=== PATIENT | male | born 1955 | race Caucasian/White ===

== ENCOUNTER 2022-05-24 03:05 | Emergency (ER) | payer MEDICARE, SELFPAY ==
[2022-05-24 03:20] VITALS: BP 146/94; PULSE 90; RESP 16; TEMP 37.9; O2SAT 93
--- NOTE | 2022-05-24 03:41 | CRLHL7_ITS ---
For Patients: As a result of the Cures Act, medical imaging exams and procedure reports are released immediately into your electronic medical record. You may view this report before your referring provider. If you have questions, please contact your health care provider. INDICATION: Cough. TECHNIQUE: Chest 2 views. COMPARISON: None. FINDINGS: Cardiovascular and mediastinum: Heart size and vasculature are normal in caliber and appearance. Lungs and pleural spaces: Lungs are clear. No sign of infiltrate or mass. No sign of pleural effusion. No pneumothorax. Bones and soft tissues: No significant findings. IMPRESSION: No acute or significant findings. No sign of pneumonia or CHF. Dictated by Mayo Alas MD @ 05/24/2022 4:28:43 AM (Electronically Signed)
--- NOTE | 2022-05-24 03:43 | ED_ITS ---
HPI - General Adult General Chief complaint: Cough Stated complaint: bronchitis Time Seen by Provider: 05/24/22 03:16 Source: patient and family Mode of arrival: ambulatory Limitations: no limitations History of Present Illness HPI narrative: Male with a notable prior history of stroke presents to the emergency department with a history of cough for the past 12-14 days. Patient states that the cough had started to improve for a couple of days and then worsened today. There is no severe shortness of breath, no hemoptysis, no lightheadedness or dizziness. He had a low-grade fever at home that started this evening. He has not tried taking any Tylenol or ibuprofen. He has been using Robitussin and NyQuil with limited temporary improvement in his symptoms. Has not sought medical care in the last 2 weeks regarding this. Denies a prior history of COPD. Does have a notable history of pulmonary hypertension, denies any sleep apnea. He is anticoagulated on Coumadin and is on metoprolol which would be suggestive of an AFib history, especially since he has had a previous stroke but he denies any knowledge of this though he does get follow-up echo. This certainly could be secondary to advanced heart failure but I have limited records as he receives his care in the [facility]. He denies a history of heart attack or other heart issues. There were no specific factors that made him suddenly come to the emergency department in the middle of the night for this cough. Denies a prior history of DVT or PE. COVID swab negative at home per patient. Denies chest pain, palpitations, dyspnea on exertion or other cardiac symptoms. Past medical history notable for prior stroke, pulmonary hypertension. Home meds are metoprolol, rosuvastatin, Coumadin, lisinopril, allopurinol. Socially is a lifetime nonsmoker, no pertinent travel. Family history is negative for any known sick contacts. Was notable for the respiratory symptoms as above, otherwise denies times 12 systems. Related Data Home Medications Medication Instructions Recorded Confirmed allopurinol 300 mg tablet mg 05/24/22 furosemide 40 mg tablet mg 05/24/22 lisinopril 20 mg tablet mg 05/24/22 metoprolol succinate 50 mg mg PO 05/24/22 tablet,extended release 24 hr rosuvastatin 20 mg tablet mg 05/24/22 warfarin 5 mg tablet mg 05/24/22 Previous Rx's Medication Instructions Recorded azithromycin 250 mg tablet See Rx Instructions PO .COMPLEX #6 05/24/22 tabs cefdinir 300 mg capsule 300 mg PO BID #14 caps 05/24/22 potassium chloride 20 mEq 20 meq PO .UD #30 tabs 05/24/22 tablet,extended release Allergies Allergy/AdvReac Type Severity Reaction Status Date / Time No Known Drug Allergies Allergy Verified 05/24/22 03:26 PFSH PFSH Medical History (Updated 05/24/22 @ 05:14 by Jenni Louis MD) CVA (cerebral vascular accident) Gout HTN (hypertension) Hyperlipidemia Lymphocytosis Myopia of both eyes with astigmatism and presbyopia PFO (patent foramen ovale) Pulmonary hypertension PVD (peripheral vascular disease) Rosacea Vitamin D deficiency Surgical History (Updated 05/24/22 @ 04:18 by Danish Bush RN) History of appendectomy History of colonoscopy History of splenectomy History of tympanoplasty History of vasectomy Social History Smoking Status: Never smoker Do you use any of these nicotine containing products: None Second hand tobacco smoke exposure: No How often do you have a drink containing alcohol: never How often do you have six or more drinks on one occasion: Never AUDIT-C Alcohol total score: 0 Non-prescribed substance use: denies use Exam Const: Vital Signs, click to edit/add: Vital Signs - 24 hr 05/24/22 03:20 05/24/22 04:06 05/24/22 05:05 Temperature 100.2 F H 99.5 F Pulse Rate [Left P ulse Oximeter] 90 85 Respiratory Rate 16 16 Blood Pressure [Le ft Upper Arm] 146/94 H 136/81 Pulse Oximetry 93 93 93 Oxygen Delivery Me thod Room Air Room Air Documenting provider has reviewed patient's vital signs: yes Common normals: alert General appearance: cooperative and comfortable Other: Moderate historian. Asks his for clarification reassurance frequently. HENMT: Common normals: normocephalic and head/scalp atraumatic Head and scalp: normocephalic and atraumatic Mouth: oral and palatal mucosa normal Throat: posterior oropharynx normal Eye: Common normals: EOMs intact bilaterally and conjunctivae normal Conjunctiva: conjunctiva(e) normal Neck & C-Spine: Common normals: no lymphadenopathy Chest: Other: . Resp: Common normals: normal respiratory effort Effort & inspection: able to speak in complete sentences Other: Coarse rhonchi in left upper and lower lung anderson, right side is clear. Breath sounds are well heard. Normal respiratory effort. Some upper airway transmitted sounds that do clear with cough Cardio: Common normals: regular rate, regular rhythm and peripheral pulses 2+ throughout Rate: regular rate Rhythm: regular rhythm Peripheral pulses: pulses 2+ throughout Other: Mid systolic murmur, 2/6 GI: Other: Obese but soft with normoactive bowel sounds. Nondistended no masses Extremity: Other: Chronic appearing 2+ edema with staining consistent with chronic venous stasis. Baseline per spouse Neuro: Sensorium/orientation: alert Speech: speech normal Motor exam: strength 5/5 throughout, no tremor noted and no movement abnormalities noted Psych: Appearance: grossly normal Attitude: engaged Insight: fair Judgement: fair Skin: Common normals: no rashes or lesions noted General skin exam: no rashes or lesions noted Course Vital Signs Vital signs: Initial Vital Signs Temperature 100.2 F H 05/24/22 03:20 Temperature Source Temporal Artery Scan 05/24/22 03:20 Pulse Rate 90 05/24/22 03:20 Respiratory Rate 16 05/24/22 03:20 Blood Pressure 146/94 H 05/24/22 03:20 Blood Pressure Mean 111 05/24/22 03:20 Blood Pressure Position Sitting 05/24/22 03:20 Pulse Oximetry 93 05/24/22 03:20 Oxygen Delivery Method 05/24/22 03:20 Vital Signs Temperature 100.2 F H 05/24/22 03:20 Pulse Rate 90 05/24/22 03:20 Respiratory Rate 16 05/24/22 03:20 Blood Pressure 146/94 H 05/24/22 03:20 Pulse Oximetry 93 05/24/22 03:20 Oxygen Delivery Method 05/24/22 03:20 Temperature 99.5 F 05/24/22 05:05 Pulse Rate 85 05/24/22 05:05 Respiratory Rate 16 05/24/22 05:05 Blood Pressure 136/81 05/24/22 05:05 Pulse Oximetry 93 05/24/22 05:05 Oxygen Delivery Method 05/24/22 05:05 Medical Decision Making MDM Narrative Medical decision making narrative: Differential diagnosis including upper respiratory infection, bronchitis, pneumonia, COVID, influenza, cardiac disease, heart failure. Recommend DuoNeb, chest x-ray, basic labs and COVID swab. Re-evaluate once labs are back. No signs of hypoxia, tachycardia or other significant abnormality. Low-grade fever noted. No hypotension to suggest sepsis. Update: Fever resolved, still no tachycardia or hypotension. Labs do show significant leukocytosis. Chest x-ray reassuring. Confirmed with radiology report. Do suspect that there is a pneumonia or a bronchopneumonia. Borderline troponin likely secondary to underlying pulmonary hypertension as he is a good not experiencing any chest pain we have not detected any cardiac abnormalities. Do not recommend further workup on cardiac issues since chest x-ray and BNP are normal. Did log into align a and review cardiac history, prior troponins but none are available. Reviewed most recent echo and subspecialty note. Because of the leukocytosis in symptoms with his underlying pulmonary history, do recommend antibiotic therapy. Starting cephalosporins/macro like combination here in ED, will continue upon discharge. Mild hypokalemia, likely secondary to ongoing furosemide use. Will replace orally here in ED and discharge patient on supply of potassium with outpatient recheck. All questions were answered, he verbalized understanding and agreement Lab Data Lab results reviewed: Yes I reviewed the patient's lab results Labs: Lab Results 05/24/22 05/24/22 05/24/22 Range/Units 03:00 04:05 04:05 WBC 19.79 H (4.50-11.00) K/uL RBC 5.27 (4.30-5.90) m/uL Hgb 16.9 (13.5-17.5) gm/dL Hct 50.1 (37.0-53.0) % MCV 95 (80-100) fL MCH 32 (26-34) pg MCHC 34 (32-36) gm/dL RDW Coeff of Inna 15.1 (11.5-15.5) % Plt Count 235 (140-440) K/uL Neut % (Auto) 64.3 (42.0-72.0) % Lymph % (Auto) 29.3 (20-44) % Millard % (Auto) 5.4 (0.0-11.0) % Eos % (Auto) 0.6 (0.0-7.0) % Baso % (Auto) 0.1 (0.0-3.0) % Neut # (Auto) 12.70 H (1.7-7.0) K/uL Lymph # (Auto) 5.80 H (0.90-2.90) K/uL Millard # (Auto) 1.10 H (0.00-0.90) K/UL Eos # (Auto) 0.10 (0.00-0.50) K/uL Baso # (Auto) 0.00 (0.00-0.30) K/uL Diff Slide Review Acceptable Review (Acceptable) INR (0.91-1.10) Sodium 137 (135-149) mmol/L Potassium 2.9 L* (3.6-5.1) mmol/L Chloride 98 (96-114) mmol/L Carbon Dioxide 33 H (20-32) mmol/L BUN 17 (7-30) mg/dL Creatinine 1.0 (0.5-1.5) mg/dL Estimated GFR 82 ml/min Glucose 139 H (60-115) mg/dL Calcium 8.7 (8.4-10.6) mg/dL Troponin I 0.06 H* (0.01-0.04) ng/mL C-Reactive Protein 0.9 (0.5-1.0) mg/dL NT-Pro-B Natriuret Pep 336 pg/mL SARS-CoV-2 (PCR) Negative SARS-CoV-2 (Negative) Influenza Type A (PCR) Negative PCR FLU A (Negative) Influenza Type B (PCR) Negative PCR FLU B (Negative) RSV (PCR) Negative PCR RSV (Negative) 05/24/22 Range/Units 04:05 WBC (4.50-11.00) K/uL RBC (4.30-5.90) m/uL Hgb (13.5-17.5) gm/dL Hct (37.0-53.0) % MCV (80-100) fL MCH (26-34) pg MCHC (32-36) gm/dL RDW Coeff of Inna (11.5-15.5) % Plt Count (140-440) K/uL Neut % (Auto) (42.0-72.0) % Lymph % (Auto) (20-44) % Millard % (Auto) (0.0-11.0) % Eos % (Auto) (0.0-7.0) % Baso % (Auto) (0.0-3.0) % Neut # (Auto) (1.7-7.0) K/uL Lymph # (Auto) (0.90-2.90) K/uL Millard # (Auto) (0.00-0.90) K/UL Eos # (Auto) (0.00-0.50) K/uL Baso # (Auto) (0.00-0.30) K/uL Diff Slide Review (Acceptable) INR 2.89 H (0.91-1.10) Sodium (135-149) mmol/L Potassium (3.6-5.1) mmol/L Chloride (96-114) mmol/L Carbon Dioxide (20-32) mmol/L BUN (7-30) mg/dL Creatinine (0.5-1.5) mg/dL Estimated GFR ml/min Glucose (60-115) mg/dL Calcium (8.4-10.6) mg/dL Troponin I (0.01-0.04) ng/mL C-Reactive Protein (0.5-1.0) mg/dL NT-Pro-B Natriuret Pep pg/mL SARS-CoV-2 (PCR) (Negative) Influenza Type A (PCR) (Negative) Influenza Type B (PCR) (Negative) RSV (PCR) (Negative) Imaging Data Chest x-ray: My impression: Normal chest x-ray Radiologist's impression: IMPRESSION: No acute or significant findings. No sign of pneumonia or CHF. Discharge Plan Discharge Clinical Impression: Bronchitis, Acute hypokalemia Patient Disposition: Home w/ Parent or Adult Condition: Stable Additional Instructions: Your chest x-ray does not show any signs of heart failure or pneumonia. There are no signs of any severe infection. I suspect that your cough is a mild bronchitis but based on the duration and your history of lung and heart disease, I do recommend that we start you on treatment for this. You have been given your 1st dose of azithromycin and ceftin, a combination of antibiotics that will help with your cough. 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 You will need to continuous pickling line pickler helper the antibiotics today, your 1st dose at home of the cefdinir, also known as Ceftin will be this evening. Your next dose of the azithromycin will be given on Monday morning. You will take 2 pills on Monday then 1 pill daily for an additional 4 days. The medication will keep working for a few extra days as well. It is okay to continue Mucinex and any ot her cough suppressants that you find helpful. The antibiotic will make your INR go up. You will need a recheck of your INR in a couple of days with her primary care provider. You should continue taking your Coumadin in the meantime. Your potassium is also low. This is common in people that take furosemide and are not also prescribed potassium to go with it. You were given some potassium here in the emergency department. I have also sent some to your pharmacy. You will take this twice daily for a few days and then once daily until you can follow-up with her primary care doctor to recheck your potassium levels and determine if you should be on this mcc. I would make a follow-up appointment to see her doctor in about a week. As discussed above, you will need an INR appointment sooner. Please discuss with your primary care doctor if her cough has not started to improve in a week. It will likely take about 2 weeks to clear completely. Activity Level: Activity as Tolerated Discharge Diet: Regular Prescriptions: New potassium chloride 20 mEq tablet extended release 20 meq PO .UD Qty: 30 0RF Rx Instructions: 1 pill 2 times daily for 5 days, then 1 pill daily until follow-up with primary physician. azithromycin 250 mg tablet See Rx Instructions .ROUTE .COMPLEX Qty: 6 0RF Rx Instructions: For 250 mg dose pack: take 500 mg today (day 1), then 250 mg for 4 days (days 2-5) cefdinir 300 mg capsule 300 mg PO BID Qty: 14 0RF No Action furosemide 40 mg tablet Label Comments: TAKE 2 TABLETS BY MOUTH EVERY MORNING AND 1 TABLET EVERY EVENING metoprolol succinate 50 mg tablet extended release 24 hr PO Label Comments: TAKE 1 TABLET BY MOUTH EVERY DAY lisinopril 20 mg tablet Label Comments: TAKE 1 TABLET BY MOUTH EVERY DAY warfarin 5 mg tablet Label Comments: TAKE 0.5 TAB BY MOUTH EVERY ES, TH, AND SAT, AND 1 TAB ALL OTHER DAYS OR DIRECTED allopurinol 300 mg tablet Label Comments: TAKE 1 TABLET BY MOUTH ONCE DAILY. rosuvastatin 20 mg tablet Label Comments: TAKE 1 TABLET BY MOUTH AT BEDTIME Follow Up/Referrals: Provider,Not a Local [Primary Care Provider] - Stand Alone Forms: MyHealth Info Instructions
[2022-05-24] MEDS: IPRAT-ALBUT 0.5-2.5 MG/3 ML NEB 1 NEB IH (04:00)
[2022-05-24 04:06] VITALS: O2SAT 93
[2022-05-24 04:27] LABS: Basophils Percent Auto 0.1 % (0.0-3.0); Eosinophils Percent Auto 0.6 % (0.0-7.0); Hematocrit 50.1 % (37.0-53.0); Hemoglobin* 16.9 gm/dL (13.5-17.5); Immature Granulocytes Pct Auto 0.3 %; Lymphocytes Percent Auto 29.3 % (20-44); Mean Corpuscular HGB Conc 34 gm/dL (32-36); Mean Corpuscular Hemoglobin 32 pg (26-34); Mean Corpuscular Volume 95 fL (80-100); Monocytes Percent Auto 5.4 % (0.0-11.0); Neutrophils Percent Auto 64.3 % (42.0-72.0); Platelet Count* 235 K/uL (140-440); RDW Coefficient of Variation % 15.1 % (11.5-15.5); Red Blood Count 5.27 m/uL (4.30-5.90); White Blood Count* 19.79 K/uL (4.50-11.00)
[2022-05-24 04:38] LABS: PCR FLU A Negative PCR FLU A (Negative); PCR FLU B Negative PCR FLU B (Negative); PCR RSV Negative PCR RSV (Negative)
[2022-05-24 04:51] LABS: SARS PCR* Negative SARS-CoV-2 (Negative)
[2022-05-24 04:54] LABS: Chloride* 98 mmol/L (96-114); Sodium* 137 mmol/L (135-149)
[2022-05-24 04:56] LABS: Estimated Glomerular Filt Rate 82 ml/min
[2022-05-24 04:57] LABS: Blood Urea Nitrogen* 17 mg/dL (7-30); Calcium* 8.7 mg/dL (8.4-10.6); Carbon Dioxide* 33 mmol/L (20-32); Glucose* 139 mg/dL (60-115); INR 2.89 (0.91-1.10); Prothrombin Time 31.6 Seconds
[2022-05-24 04:58] LABS: Potassium* 2.9 mmol/L (3.6-5.1)
[2022-05-24 05:00] LABS: C Reactive Protein* 0.9 mg/dL (0.5-1.0)
[2022-05-24 05:05] VITALS: BP 136/81; PULSE 85; RESP 16; TEMP 37.5; O2SAT 93
[2022-05-24 05:11] LABS: NT Pro B Type NatriureticPept* 336 pg/mL; Troponin I* 0.06 ng/mL (0.01-0.04)
[2022-05-24] MEDS: AZITHROMYCIN 250 MG TABLET 500 MG PO (05:11)
--- NOTE | 2022-05-24 05:12 | ED.NURSE ---
trop 0.06 - md garner updated.
[2022-05-24 05:19] LABS: Slide Review Reflex Yes
[2022-05-24 05:21] LABS: Slide Review Acceptable Review (Acceptable)
[2022-05-24] MEDS: POTASSIUM CHLORIDE 10 MEQ CAPSULE ER 40 MEQ PO (05:38)
[2022-05-24 05:48] VITALS: BP 128/79; PULSE 81; RESP 16; TEMP 37.3; O2SAT 92
== END 2022-05-24 05:49 | disposition home or self-care (01) ==
PROVIDERS: Emergency Provider Family Medicine
DX: J40 Bronchitis, not specified as acute or chronic (principal); E87.6 Hypokalemia; Z13.0 Encounter for screening for diseases of the blood and blood-forming organs and certain disorders involving the immune mechanism
CPT/HCPCS: 36415; 71046; 80048; 83880; 84484; 85025; 85610; 86140; 87502; 87634; 87635; 94640; 94761; 99284; A9270

== ENCOUNTER 2025-02-22 09:48 | Emergency (ER) | payer MEDICARE, SELFPAY ==
--- OUTSIDE RECORDS SUMMARY | 2022-09-26 19:00 | XMS_ITS | Continuity of Care Document ---
Author Organization [facility] Address [address] [address] [place] [address] Phone Care Team Providers Care Sanitation Truck Cleaner Name Role Phone Mario Toro MD Unavailable Unavailable Allergies, Adverse Reactions, Alerts Substance Reaction Status Criticality aspirin Headache Active No Information Medications Medication Instructions Dosage Effective Dates (start - stop) Status Comments allopurinol 300 mg tablet take 1 tablet by oral route every day 300 MG - Active metoprolol succinate ER 50 mg tablet,extended release 24 hr take 1 tablet by oral route every day 50 MG - Active Tracleer 125 mg tablet take 1 tablet by oral route 2 times every day in the morning and evening 125 MG - Active Vitamin D3 4,000 unit capsule take 1 tablet by oral route every day - Active furosemide 40 mg tablet take 1 tablet by oral route every day 40 MG - Active lisinopril 20 mg tablet take 1 tablet by oral route every day 20 MG - Active simvastatin 20 mg tablet take 1 tablet by oral route every day in the evening 20 MG - Active warfarin 5 mg tablet take 1 tablet by or al route every day 5 MG - Active Procedures Procedure Date Init Hosp-da E&m Mod Severity 3 Subsqt Hosp-da E&m Minr Compl 3 Colonoscopy Flex; W/remov Les- 17 Level Iv-surg Path Gross/micro 17 Advance Directives Directive Yes / No Effective Date File Name No Information Encounters Encounter Description Practice Location Reason(s) For Visit Diagnoses Date Provider Providers Copied on Encounter [facility], [address] [address], [place], [id number], [place] tel:[phone] [facility] No Information 3 Cort[address] Blair. [address] [facility], [facility] [address], [place], [place], [id number], [place]. tel:[phone] Init Hosp-da E&m Mod Severity [facility], [address] [address], [place], [place], [id number], [place] tel:[phone] [facility] No Information 3 [place] [place]. [address] [facility], [address], [place], [place], [id number], [place]. tel:[phone] Referring Provider: Sahil Bey MD M, [address] [place], [address]. tel:[phone] [facility], [address] [address], [place], [place], [id number], [place] tel:[phone] [facility] Multiple polyps of sigmoid colonDiverticulo sis of colon without diverticulitisIn ternal hemorrhoidsEncou nter for screening for malignant neoplasm of colonOther hemorrhoidsDvrtc los of lg int w/o perforation or abscess w/o bleedingBenign neoplasm of sigmoid colon 7 No Information Referring Provider: David Elizabeth MD, [address], [place], [address]. tel:[phone] Family History Family Member Type Diagnosis Age At Onset Mother Problem (finding) Alive and well Brother Problem (finding) Alive and well Son Problem (finding) Alive and well Father Problem (finding) Sister Problem (finding) Alive and well Payers Payer name Insurance type Covered republican ID Authoriza tion(s) No Information Social History Type Description Quantity Date Captured Comments Sex Male Smoking Status No Information Chief Complaint And Reason For Visit No Information Reason For Referral Reason For Referral No Information History Of Present Illness Encounter Date Complaint History Of Prese nt Illness No Information Functional Status Date Functional Assessmen t No Information Instructions Date Instruction Additional Infor mation Hemorrhoids Related to Inter nal hemorrhoids High Fiber Diet Related to Inter nal hemorrhoids Colon Polyps Related to Inter nal hemorrhoids Colon Cancer Prevention Related to Internal hemorrhoids Assessments Type Assessment Date No Information Patient Care Teams Name Effective Dates (start - stop) Status Members No Information
--- OUTSIDE RECORDS SUMMARY | 2022-09-26 19:00 | XMS_ITS | Continuity of Care Document ---
Author Organization [facility] Address [address] [address] [place] [address] Phone Care Team Providers Care Quality Control Name Role Phone Mario Toro MD Unavailable [...] Encounter [facility], [address] [address], [place], [id number], [place] tel:[phone] [facility] No Information 3 [address] Blair. [address] [facility], [facility] [address], [place], [place], [id number], [place]. tel:[phone] Init Hosp-da E&m Mod Severity [facility], [address] [address], [place], [place], [id number], [place] tel:[phone] [facility] No Information 3 [place]. [address] [facility], [address], [place], [place], [id number], [place]. tel:[phone] Referring Provider: Sahil Bey MD M, [address] [place], [address]. tel:[phone] [facility], [address] [address], [place], [place], [id number], [place] tel:[phone] [facility] Multiple polyps of sigmoid colonDiverticulo sis of colon without diverticulitisIn ternal hemorrhoidsEncou nter for screening for malignant neoplasm of colonOther hemorrhoidsDvrtc los of lg int w/o perforation or abscess w/o bleedingBenign neoplasm of sigmoid colon 7 No Information Referring Provider: David Elizabeth MD, [address], [place], [address]. tel:[phone] Family History Family Member Type Diagnosis Age At Onset Mother Problem (finding) Alive and well Brother Problem (finding) Alive and well Son Problem (finding) Alive and well Father Problem (finding) Sister Problem (finding) Alive and well Payers Payer name Insurance type Covered constitution party ID Authoriza tion(s) No Information Social History [...]
[2025-02-22] VITALS (49 sets, daily range): BP systolic 147–169; BP diastolic 81–102; PULSE 69–101; RESP 18; TEMP 36.9; O2SAT 87–96; BMI 39.3
--- OUTSIDE RECORDS SUMMARY | 2025-02-22 09:51 | XMS_ITS | Data Portability ---
Author Organization [facility], [facility] Address [address] [place] [address] Care Team Providers Care Supervisor Multifocal Lens Name Role Phone MAUSARIESPERANZA Primary Care Provider Assessment No assessment recorded. Plan of Treatment Reminders Order Date Submit Date Provider Last Modified By Organization Details Last Modified Time Details Appointments None recorded . Lab None recorded . Referral None recorded . Procedures None recorded . Surgeries None recorded . Imaging US, kidney 023 01/17/20 23 [email or web address] [facility], [address], [place], [address], 3 09:56:52 Medication Orders None recorded . Patient TargetsNo targets recorded. Patient InstructionsNo instructions recorded. Reason for Referral None Reported. Procedures Surgical History Date Name Laterality Status Provider Name and Address Organization Details Recorded Time 8 Colonoscopy completed Francisco Aldana [facility] 01/16/2023 14:46:34 Imaging Results None recorded. Procedure Notes None recorded. Medical Equipment None Reported. Allergies No known drug allergies Medications Name Sig Start Date Stop Date Status Note LastModified by Organization Details LastModified Time furosemide 40 mg tablet TAKE 2 TABLETS BY MOUTH EVERY MORNING AND 1 TABLET EVERY EVENING active Not Available Not Available No t Available azithromycin 250 mg tablet TAKE 2 TABLETS BY MOUTH TODAY, THEN TAKE 1 TABLET DAILY FOR 4 DAYS active Not Available Not Available No t Available metoprolol succinate ER 50 mg tablet,exten ded release 24 hr TAKE 1 TABLET BY MOUTH EVERY DAY active Not Available Not Available No t Available lisinopril 20 mg tablet TAKE 1 TABLET BY MOUTH EVERY DAY active Not Available Not Available No t Available warfarin 5 mg tablet PLEASE SEE ATTACHED FOR DETAILED DIRECTIONS active Not Available Not Available N ot Available allopurinol 300 mg tablet TAKE 1 TABLET BY MOUTH ONCE DAILY. active Not Available Not Available No t Available midodrine 2.5 mg tablet TAKE 1 TABLET (2.5 MG) BY MOUTH THREE TIMES DAILY. active Not Available Not Available No t Available cefdinir 300 mg capsule TAKE 1 CAP (300 MG) ORALLY TWICE A DAY active Not Available Not Available Not Available rosuvastatin 20 mg tablet TAKE 1 TABLET BY MOUTH AT BEDTIME active Not Available Not Available No t Available Klor-Con M20 mEq tablet,exten ded release TAKE 1 TABLET (20 MEQ) BY MOUTH ONCE DAILY WITH A MEAL. active Not Available Not Available No t Available Eliquis 5 mg tablet TAKE 1 TABLET BY MOUTH TWO TIMES DAILY. active Not Available Not Available No t Available potassium chloride ER 20 mEq tablet,exten ded release PLEASE SEE ATTACHED FOR DETAILED DIRECTIONS active Not Available Not Available N ot Available Vitals Date Recorded Body height Body mass index (BMI) Body weight Provider Name and Address Organization Details Last Updated DateTime 01/16/2023 182.88 cm 35.3 kg/m2 575514.02 g Francisco Aldana [facility] 01/16/2023 14:45:35 Social History Question Answer Notes LastModified by Organizat ion Details LastModified Time Tobacco Smoking Status [facility]/2023 14:46:09 What Is Your Level Of Caffeine Consumption? Occasional Information not available 01/16/2023 What Was The Date Of Your Most Recent Tobacco Screening? 01/16/2023 Information not available 01/16/2023 Has Tobacco Cessation Counseling Been Provided? No Information not available 01/16/2023 Sex: Unknown Functional Status Question Answer Note LastModified by Organizat ion Details LastModified Time Do you use any illicit or recreational drugs? No Information not available 01/16/2023 Do you or have you ever used any other forms of tobacco or nicotine? No Information not available 01/16/2023 What is your level of alcohol consumption? None Information not available 01/16/2023 Mental Status None recorded. Family History Nothing Reported. Medical History No medical history recorded. Past Encounters Encounter ID Performer Location Encounter Start Date Encounter Closed Date Diagnosis/Indication Diagnosis SNOMED-CT Code Diagnosis ICD10 Code Diagnosis IMO Codes Diagnosis Note [id number] Kvng Aguayo MD [facility] [address] [place] [address] 01/16/2023 14:33:19 01/16/2023 14:58:01 Kidney stone 52654166 N20.0 f/u routineno pain or hematuriad iscussed stone prevention -(getting psa next week w primary) Health Concerns Section Related Observation LastModified by Organization Detai ls LastModified Time None Recorded Concern Status LastModified by Organization Details LastModified Time None Recorded Advance Directives Directive None Recorded Payers Insurance Date Sequence Insurance Name Policy Number Policy De Guzman Covered Member ID De Guzman Member ID Guarantor Name 01/26/2023 1 [facility]: (MEDICARE REPLACEMENT PPO) [id number] Harry Blanca [id number] Harry Blanca Notes Date Note Type Note Provider Name and Address Organization Details Recorded Time 01/16/2023 text/html ROS as noted in the HPI patient w history of stoness/p surgery 3 months ago. Kvng Aguayo MD [address], [place], [address], [facility] 01/16/2023 14:53:21
--- NOTE | 2025-02-22 10:14 | ED.ABDPAIN ---
HPI - Abdominal Pain General Date Seen: 02/22/25 Chief Complaint: Abdominal Pain Stated Complaint: Pain on the right side of stomache Time Seen by Provider: 02/22/25 10:01 Source: patient, family, RN notes reviewed and old records reviewed Mode of arrival: ambulatory Limitations: no limitations History of Present Illness HPI narrative: Patient is a 69-year-old gentleman who presents here with right upper quadrant abdominal pain, he has had this for the last 3-4 days, he notes that on the way here to the hospital his pain resolved. He says it feels a little bit like a kidney stone he says he has a known kidney stones right kidney. He has had these in the past. Denies any nausea any vomiting when he gets the pain he did take couple days ago some Tylenol which she does not thing did anything with this. He has had normal bowel movements with no diarrhea, he has noted no fevers or chills associated with this. Previous history of appendectomy, and a splenectomy. The pain is not worse with eating, there is no radiation of discomfort, he describes it is almost cramping in nature. No urinary tract symptoms denies any hematuria. Has a history of pulmonary hypertension. Here with his Frances they have been for 51 years. Related Data Home Medications ?Medication ?Instructions ?Recorded ?Confirmed rosuvastatin 20 mg tablet 20 mg 05/24/22 warfarin 5 mg tablet mg 05/24/22 allopurinol 100 mg tablet 200 mg PO DAILY 02/22/25 02/22/25 apixaban 5 mg tablet (Eliquis) 5 mg PO BID 02/22/25 02/22/25 bosentan 125 mg tablet 125 mg PO BID 02/22/25 02/22/25 losartan 100 mg tablet 100 mg PO DAILY 02/22/25 02/22/25 sildenafil (pulm.hypertension) 20 20 mg PO TID 02/22/25 02/22/25 mg tablet treprostinil 64 mcg cartridge with mcg inhalation 02/22/25 inhaler (Tyvaso DPI) Previous Rx's ?Medication ?Instructions ?Recorded cefdinir 300 mg capsule 300 mg PO BID #14 caps 05/24/22 Held on 02/22/25. Instructions: Doctor's Order potassium chloride 20 mEq 20 meq PO .UD #30 tabs 05/24/22 tablet,extended release Allergies Allergy/AdvReac Type Severity Reaction Status Date / Time No Known Drug Allergies Allergy Verified 02/22/25 11:59 Review of Systems Status of ROS Reports: 10 or more systems reviewed and unremarkable except as noted in History and below [facility] Lymphocytosis ?D72.820 - Lymphocytosis (symptomatic) (ICD-10) Myopia of both eyes with astigmatism and presbyopia ?H52.13 - Myopia, bilateral (ICD-10) ?H52.203 - Unspecified astigmatism, bilateral (ICD-10) ?H52.4 - Presbyopia (ICD-10) Vitamin D deficiency ?E55.9 - Vitamin D deficiency, unspecified (ICD-10) PVD (peripheral vascular disease) ?I73.9 - Peripheral vascular disease, unspecified (ICD-10) CVA (cerebral vascular accident) ?I63.9 - Cerebral infarction, unspecified (ICD-10) Rosacea ?L71.9 - Rosacea, unspecified (ICD-10) Pulmonary hypertension ?I27.20 - Pulmonary hypertension, unspecified (ICD-10) PFO (patent foramen ovale) ?Q21.12 - Patent foramen ovale (ICD-10) Hyperlipidemia ?E78.5 - Hyperlipidemia, unspecified (ICD-10) HTN (hypertension) ?I10 - Essential (primary) hypertension (ICD-10) Gout ?M10.9 - Gout, unspecified (ICD-10) Surgical History History of vasectomy ?Z98.52 - Vasectomy status (ICD-10) History of tympanoplasty ?Z98.890 - Other specified postprocedural states (ICD-10) History of splenectomy ?Z90.81 - Acquired absence of spleen (ICD-10) History of colonoscopy ?Z98.890 - Other specified postprocedural states (ICD-10) History of appendectomy ?Z90.49 - Acquired absence of other specified parts of digestive tract (ICD-10) Social History Smoking Status: Never smoker Do you use any of these nicotine containing products: None Second hand tobacco smoke exposure: No How often do you have a drink containing alcohol: never How often do you have six or more drinks on one occasion: Never AUDIT-C Alcohol total score: 0 Non-prescribed substance use: denies use Exam Narrative: Exam Narrative: On examination in room 2 he is delightful he is in no apparent distress pain-free. Nontoxic looking, pupils equal round reactive to light his oropharynx is normal well-hydrated, rosacea on his face is notable. His neck is supple chest is good air entry bilateral with no wheezing crackles noted little bit of accentuation of his P2 is noted. No murmurs, S1 is normal. Abdomen is soft and obese, some mild tenderness in the right upper quadrant with a mildly positive Hicks sign. No other tenderness is noted through his abdomen, long scar on his left upper quadrant consistent with the splenectomy. Moves all extremities independently and well. Skin reveals no petechiae rashes he is neurologically intact in the upper lower extremities with normal power. Normal coordination. Const: Vital Signs, click to edit/add: Vital Signs - 24 hr 02/22/25 09:58 02/22/25 10:47 02/22/25 10:48 Temperature 98.5 F Pulse Rate 78 75 Pulse Rate [Pulse Oximeter] 88 Respiratory Rate 18 Blood Pressure 163/91 H Blood Pressure [Ri ght Upper Arm] 169/92 H Pulse Oximetry 92 90 91 02/22/25 10:50 02/22/25 11:00 02/22/25 11:03 Temperature Pulse Rate 71 70 Pulse Rate [Pulse Oximeter] Respiratory Rate Blood Pressure 150/84 H Blood Pressure [Ri ght Upper Arm] Pulse Oximetry 92 93 91 02/22/25 11:10 02/22/25 11:15 02/22/25 11:16 Temperature Pulse Rate 73 69 Pulse Rate [Pulse Oximeter] Respiratory Rate Blood Pressure 147/88 H Blood Pressure [Ri ght Upper Arm] Pulse Oximetry 92 92 92 02/22/25 11:20 02/22/25 11:30 02/22/25 11:32 Temperature Pulse Rate 70 69 Pulse Rate [Pulse Oximeter] Respiratory Rate Blood Pressure 155/86 H Blood Pressure [Ri ght Upper Arm] Pulse Oximetry 91 92 93 02/22/25 11:33 02/22/25 11:43 02/22/25 11:45 Temperature Pulse Rate 69 78 Pulse Rate [Pulse Oximeter] Respiratory Rate Blood Pressure Blood Pressure [Ri ght Upper Arm] Pulse Oximetry 92 91 93 02/22/25 11:47 02/22/25 11:50 02/22/25 12:09 Temperature Pulse Rate 74 101 H Pulse Rate [Pulse Oximeter] Respiratory Rate Blood Pressure 166/102 H Blood Pressure [Ri ght Upper Arm] Pulse Oximetry 96 96 87 L 02/22/25 12:10 02/22/25 12:15 02/22/25 12:17 Temperature Pulse Rate 78 75 Pulse Rate [Pulse Oximeter] Respiratory Rate Blood Pressure 153/81 H Blood Pressure [Ri ght Upper Arm] Pulse Oximetry 90 96 96 02/22/25 12:20 02/22/25 12:30 02/22/25 12:32 Temperature Pulse Rate 82 77 Pulse Rate [Pulse Oximeter] Respiratory Rate Blood Pressure 156/90 H Blood Pressure [Ri ght Upper Arm] Pulse Oximetry 95 95 95 02/22/25 12:33 02/22/25 12:40 02/22/25 12:45 Temperature Pulse Rate 77 76 Pulse Rate [Pulse Oximeter] Respiratory Rate Blood Pressure Blood Pressure [Ri ght Upper Arm] Pulse Oximetry 95 93 93 02/22/25 12:47 02/22/25 12:50 02/22/25 12:59 Temperature Pulse Rate 76 Pulse Rate [Pulse Oximeter] Respiratory Rate Blood Pressure 158/91 H Blood Pressure [Ri ght Upper Arm] Pulse Oximetry 93 92 92 02/22/25 13:00 02/22/25 13:02 02/22/25 13:15 Temperature Pulse Rate 77 73 75 Pulse Rate [Pulse Oximeter] Respiratory Rate Blood Pressure 151/89 H Blood Pressure [Ri ght Upper Arm] Pulse Oximetry 90 92 91 02/22/25 13:16 02/22/25 13:40 02/22/25 13:45 Temperature Pulse Rate 78 79 78 Pulse Rate [Pulse Oximeter] Respiratory Rate Blood Pressure 160/88 H Blood Pressure [Ri ght Upper Arm] Pulse Oximetry 91 90 94 02/22/25 13:47 02/22/25 13:48 02/22/25 14:00 Temperature Pulse Rate 76 75 75 Pulse Rate [Pulse Oximeter] Respiratory Rate Blood Pressure 156/88 H Blood Pressure [Ri ght Upper Arm] Pulse Oximetry 94 94 93 02/22/25 14:02 02/22/25 14:15 02/22/25 14:17 Temperature Pulse Rate 75 76 Pulse Rate [Pulse Oximeter] Respiratory Rate Blood Pressure 157/89 H 157/88 H Blood Pressure [Ri ght Upper Arm] Pulse Oximetry 93 94 02/22/25 14:30 02/22/25 14:32 02/22/25 14:45 Temperature Pulse Rate 73 77 72 Pulse Rate [Pulse Oximeter] Respiratory Rate Blood Pressure 160/90 H Blood Pressure [Ri ght Upper Arm] Pulse Oximetry 93 94 93 02/22/25 14:47 02/22/25 15:00 02/22/25 15:02 Temperature Pulse Rate 74 76 74 Pulse Rate [Pulse Oximeter] Respiratory Rate Blood Pressure 153/93 H 162/95 H Blood Pressure [Ri ght Upper Arm] Pulse Oximetry 93 95 94 02/22/25 15:15 Temperature Pulse Rate 75 Pulse Rate [Pulse Oximeter] Respiratory Rate Blood Pressure Blood Pressure [Ri ght Upper Arm] Pulse Oximetry 94 Documenting provider has reviewed patient's vital signs: yes Course Course ED Course: I talked to the patient is , his CT scan did not show any acute problems, there is evidence of diverticulosis evidence of cholelithiasis, and a right-sided renal intrarenal stone. I did do an ultrasound also which showed evidence of cholelithiasis, I suspect that this may be what is causing his problem in being biliary colic, his urinalysis did show some hematuria and I do recommend they follow up with Urology for an assessment of this. This can be done as an outpatient I do think in the near future however seeing General surgery include and thinking maybe he needs his gallbladder out. We talked about treatments for this as he is currently pain-free I think a low-fat diet along with the some narcotics to use as needed, and return to the ER if increasing signs and symptoms jaundice pain nausea vomiting or other issues. He was very comfortable with this plan. Vital Signs Vital signs: Initial Vital Signs Temperature 98.5 F 02/22/25 09:58 Temperature Source Temporal Artery Scan 02/22/25 09:58 Pulse Rate 88 02/22/25 09:58 Respiratory Rate 18 02/22/25 09:58 Blood Pressure 169/92 H 02/22/25 09:58 Blood Pressure Mean 117 H 02/22/25 09:58 Pulse Oximetry 92 02/22/25 09:58 Vital Signs Temperature 98.5 F 02/22/25 09:58 Pulse Rate 88 02/22/25 09:58 Respiratory Rate 18 02/22/25 09:58 Blood Pressure 169/92 H 02/22/25 09:58 Pulse Oximetry 92 02/22/25 09:58 Temperature 98.5 F 02/22/25 09:58 Pulse Rate 75 02/22/25 15:15 Respiratory Rate 18 02/22/25 09:58 Blood Pressure 162/95 H 02/22/25 15:02 Pulse Oximetry 94 02/22/25 15:15 MDM - Abdominal Pain MDM Narrative Medical decision making narrative: During this evaluation of this patient I considered multiple differential diagnosis is which included the life-threatening such as appendicitis, aortic aneurysm, mesenteric ischemia, bowel perforation, volvulus, and bowel obstruction. Other differential diagnosis is include but are not limited to cholecystitis, pancreatitis, hepatitis, gastritis, GERD, diverticulitis, peptic ulcer disease, pyelonephritis/UTI, renal colic/stone, testicular torsion as well as other acute scrotal processes, inflammatory bowel disease, as well as other etiologies Differential Diagnosis Differential diagnosis: Likely abdominal pain, acute appendicitis, calculus of kidney, constipation, diverticulitis, endometriosis, gastroenteritis, pancreatitis and small bowel obstruction Medical Records Attestation: I reviewed the patient's medical records. Lab Data Attestation: I reviewed the patient's lab results. Labs: Lab Results 02/22/25 02/22/25 02/22/25 Range/Units 10:30 10:35 11:40 WBC 9.71 (4.50-11.00) K/uL RBC 5.25 (4.30-5.90) m/uL Hgb 16.5 (13.5-17.5) gm/dL Hct 50.7 (37.0-53.0) % MCV 97 (80-100) fL MCH 31 (26-34) pg MCHC 33 (32-36) gm/dL RDW Coeff of Inna 15.0 (11.5-15.5) % Plt Count 326 (140-440) K/uL Neut % (Auto) 33.3 L (42.0-72.0) % Lymph % (Auto) 56.4 H (20-44) % [place] % (Auto) 6.5 (0.0-11.0) % Eos % (Auto) 3.3 (0.0-7.0) % Baso % (Auto) 0.3 (0.0-3.0) % Neut # (Auto) 3.20 (1.7-7.0) K/uL Lymph # (Auto) 5.50 H (0.90-2.90) K/uL [place] # (Auto) 0.60 (0.00-0.90) K/UL Eos # (Auto) 0.32 (0.00-0.50) K/uL Baso # (Auto) 0.03 (0.00-0.30) K/uL Abs Immat Gran (auto) 0.02 (0.00-0.30) K/uL Imm/Tot Granulo (auto) 0.2 % Diff Slide Review Acceptable Review (Acceptable) Sodium 135 (135-149) mmol/L Potassium 4.3 (3.6-5.1) mmol/L Chloride 102 (96-114) mmol/L Carbon Dioxide 28 (20-32) mmol/L Anion Gap 5 L (7-15) mEq/L BUN 15 (7-30) mg/dL Creatinine 0.9 (0.5-1.5) mg/dL Estimated Creat Clear 74.37 Estimated GFR 91 ml/min Glucose 121 H (60-115) mg/dL Lactate 1.7 (0.5-1.9) mmol/L Calcium 9.3 (8.4-10.6) mg/dL Total Bilirubin 0.7 (0.1-1.5) mg/dL Direct Bilirubin 0.3 (0.0-0.5) mg/dL AST 30 (12-35) U/L ALT 25 (4-50) U/L Alkaline Phosphatase 98 (40-150) U/L Total Protein 7.5 (6.0-8.3) g/dL Albumin 4.2 (3.3-5.0) g/dL Amylase 56 (18-89) U/L Lipase 65 (23-300) U/L Procalcitonin 0.05 (<0.50) ng/mL Urine Color Yellow (Yellow) Urine Appearance Slightly Cloudy A (Clear) Urine pH 7.0 (5.0-8.5) Ur Specific [place] 1.015 (1.000-1.030) Urine Protein Trace A (Negative) Urine Glucose (UA) Negative (Negative) Urine Ketones Negative (Negative) Urine Blood 3+ A (Negative) Urine Nitrite Negative (Negative) Urine Bilirubin Negative (Negative) Urine Urobilinogen 0.2 (0.2-1.0) Ur Leukocyte Esterase Negative (Negative) Urine RBC 50-100 A (0-2) Urine WBC 2-5 (0-5) Ur Squamous Epith Cells Few (None-Few) Urine Bacteria Few A (None) POC Troponin I 0.00 L (0.01-0.04) ng/ml Imaging Data CT scan - abdomen: Radiologist's impression: [address] [address] Diagnostic Imaging Report Patient: Harry Blanca MR#: [id number] : 1955 Acct:[id number] Loc: ED Service Date: 02/22/[address]: Ordering Physician: Kt Ruffin M.D. Date of Service: 02/22/25 Procedure(s): US gallbladder Accession Number(s): [id number] cc: Provider,Not a Local; Kt Ruffin M.D.~ For Patients: As a result of the Cures Act, medical imaging exams and procedure reports are released immediately into your electronic medical record. You may view this report before your referring provider. If you have questions, please contact your health care provider. INDICATION: Right upper quadrant abdomen pain. TECHNIQUE: Ultrasound abdomen limited. Sonographic images of the right upper quadrant were obtained using malhotra-scale and color Doppler images. COMPARISON: Same day CT abdomen pelvis with contrast. FINDINGS: Cholelithiasis. Positive sonographic Hicks`s sign. No pericholecystic fluid. The gallbladder is partially collapsed. The common bile duct measures 0.5 centimeters. IMPRESSION: Cholelithiasis without pericholecystic fluid or other secondary signs for acute cholecystitis. In the setting of positive sonographic Hicks sign, these findings are equivocal for acute cholecystitis. Further evaluation can be obtained with nuclear HIDA scan. Dictated by Douglas Ybarra MD @ 02/22/2025 3:02:[address] [address] Diagnostic Imaging Report Patient: Harry Blanca MR#: [id number] : 1955 Acct:[id number] Loc: ED Service Date: 02/22/[address]: Ordering Physician: Kt Ruffin M.D. Date of Service: 02/22/25 Procedure(s): CT abdomen pelvis w con Accession Number(s): [id number] cc: Provider,Not a Local; Kt Ruffin M.D.~ For Patients: As a result of the Cures Act, medical imaging exams and procedure reports are released immediately into your electronic medical record. You may view this report before your referring provider. If you have questions, please contact your health care provider. Indication: 69-year-old male with right upper quadrant pain. Technique: Routine enhanced abdomen and pelvis protocol with 143 mL Isovue 370 IV contrast. Comparison: None. Findings : Lung bases: No findings for active disease. Liver: Normal in caliber and attenuation. No masses. Gallbladder and bile ducts: Small dependent echogenic stones or sludge. No wall thickening or gallbladder distention. No biliary dilation. Pancreas: Unremarkable. Spleen: Absent. Adrenal glands: Unremarkable. No masses. Kidneys: 1.2 centimeter nonobstructing calculus upper pole right kidney. Left 3.8 centimeter cyst. Subcentimeter hypodensities, likely cysts. GI tract: Normal in caliber and appearance. No sign of mass or inflammation. Descending and sigmoid colon diverticuli without focal inflammation. Appendix: No acute appendicitis. Lymph nodes: No lymphadenopathy. Aorta and vessels: No aneurysm or severe stenosis. Omentum/peritoneum/retroperitoneum: No masses or infiltration. No free air or significant free fluid. Pelvic organs: Mild prostatomegaly. 5.3 centimeter maximum diameter. Preservation of the periprostatic fat planes. Bones: Extensive vertebral body bridging osteophytosis as well as fusion of multiple facet joints suggests ankylosing spondylitis or seronegative arthropathy. No sacroiliitis. Soft Tissues: No mass lesions or significant hernias. Impression: 1. Small dependent echogenic stones or sludge. No wall thickening or gallbladder distention to suggest acute cholecystitis. 2. 1.2 centimeter nonobstructing calculus upper pole right kidney. 3. Extensive vertebral body bridging osteophytosis as well as fusion of multiple facet joints suggests ankylosing spondylitis or seronegative arthropathy. No sacroiliitis. 4. Descending and sigmoid diverticulosis without focal inflammation. 5. Additional chronic findings as above. Please note that all CT scans at this facility use dose modulation, iterative reconstruction, and/or weight-based dosing when appropriate to reduce radiation dose to as low as reasonably achievable. Dictated by Florencio Lambert MD @ 02/22/2025 12:43:47 PM (Electronically Signed)(Electronically Signed) ECG Data Attestation: I personally reviewed and interpreted this ECG as follows: ECG interpretation date: 02/22/25 Prior ECG tracings: available for review Interpretation: EKG shows normal sinus rhythm, with a ventricular rate 81, right bundle-branch block is noted. With some T-wave abnormalities with noted inferiorly and anteriorly. Artifact is noted from muscle movement. QRS is 158 milliseconds, QT is 410, QTC is 476. In comparison to old EKG from 2009 there has been no appreciable change. Assessment: Abnormal EKG see above, no appreciable change. Discharge Plan Discharge Clinical Impression: Biliary colic, Cholelithiases, Nephrolithiasis Patient Disposition: Home w/ Parent or Adult Condition: Improved Instructions: Biliary Colic (ED), Gallstones (ED), Kidney Stones (ED) Additional Instructions: Home, rest, low-fat diet, pain medications oxycodone 5 mg p.o. t.i.d. as needed p.r.n., this can make you constipated also can make you tired, he should not combine this with alcohol. I do recommend following up with General surgery within 1-2 weeks this talk about getting her gallbladder taken out, return to the emergency room if ongoing pain, fevers chills nausea vomiting or jaundice. Low-fat diet is strongly suggest The CT scan did show right-sided kidney stone that was not coming out, so nothing needs to be done, your prostate was enlarged, so you should follow-up with primary care and consider getting a PSA. There was some diverticulosis which is normal. Activity Level: Light activity Discharge Diet: Regular Prescriptions: No Action allopurinol 100 mg tablet 200 mg PO DAILY losartan 100 mg tablet 100 mg PO DAILY Eliquis 5 mg tablet 5 mg PO BID bosentan 125 mg tablet 125 mg PO BID sildenafil (pulm.hypertension) 20 mg tablet 20 mg PO TID Rx Instructions: administer doses at least 4-6 hours apart Tyvaso DPI 64 mcg cartridge with inhaler inhalation warfarin 5 mg tablet Patient Comments: TAKE 0.5 TAB BY MOUTH EVERY ES, TH, AND SAT, AND 1 TAB ALL OTHER DAYS OR DIRECTED rosuvastatin 20 mg tablet 20 mg Patient Comments: TAKE 1 TABLET BY MOUTH AT BEDTIME potassium chloride 20 mEq tablet extended release 20 meq PO .UD Qty: 30 0RF Rx Instructions: 1 pill 2 times daily for 5 days, then 1 pill daily until follow-up with primary physician. cefdinir 300 mg capsule 300 mg PO BID Qty: 14 0RF Follow Up/Referrals: Dilcia Dalton MD [Staff Physician, General Surgery] Carlos Cheek MD [Staff Physician, General Surgery] Aziza Beckford MD [Staff Physician, General Surgery] Provider,Not a Local [Primary Care Provider, Family Practice] Stand Alone Forms: [facility] Info Instructions
[2025-02-22 10:37] LABS: Lactate* 1.7 mmol/L (0.5-1.9)
[2025-02-22 10:41] LABS: Hematocrit* 50.7 % (37.0-53.0); Hemoglobin* 16.5 gm/dL (13.5-17.5); Immature Granulocytes Abs Auto 0.02 K/uL (0.00-0.30); Immature Granulocytes Pct Auto 0.2 %; Mean Corpuscular HGB Conc 33 gm/dL (32-36); Mean Corpuscular Hemoglobin 31 pg (26-34); Mean Corpuscular Volume 97 fL (80-100); RDW Coefficient of Variation % 15.0 % (11.5-15.5); Red Blood Count* 5.25 m/uL (4.30-5.90); White Blood Count* 9.71 K/uL (4.50-11.00)
[2025-02-22 10:46] LABS: Troponin, Point-of-Care* 0.00 ng/ml (0.01-0.04)
[2025-02-22 10:57] LABS: Lymphocytes Absolute Auto 5.50 K/uL (0.90-2.90); Slide Review Reflex Yes
[2025-02-22 11:10] LABS: Slide Review Acceptable Review (Acceptable)
[2025-02-22 11:13] LABS: Albumin* 4.2 g/dL (3.3-5.0); Chloride* 102 mmol/L (96-114); Potassium* 4.3 mmol/L (3.6-5.1); Sodium* 135 mmol/L (135-149)
[2025-02-22 11:16] LABS: Alanine Aminotransferase* 25 U/L (4-50); Alkaline Phosphatase* 98 U/L (40-150); Anion Gap 5 mEq/L (7-15); Aspartate Amino Transferase* 30 U/L (12-35); Bilirubin Direct* 0.3 mg/dL (0.0-0.5); Bilirubin Total* 0.7 mg/dL (0.1-1.5); Blood Urea Nitrogen* 15 mg/dL (7-30); Calcium* 9.3 mg/dL (8.4-10.6); Carbon Dioxide* 28 mmol/L (20-32); Creatinine* 0.9 mg/dL (0.5-1.5); Est. Creatinine Clearance* 74.37; Estimated Glomerular Filt Rate 91 ml/min; Glucose* 121 mg/dL (60-115); Total Protein* 7.5 g/dL (6.0-8.3)
[2025-02-22 11:33] LABS: Procalcitonin* 0.05 ng/mL (<0.50)
--- NOTE | 2025-02-22 11:44 | CRLHL7_ITS ---
For Patients: As a result of the Century Cures Act, medical imaging exams and procedure reports are released immediately into your electronic medical record. You may view this report before your referring provider. If you have questions, please contact your health care provider. Indication: 69-year-old male with right upper quadrant pain. Technique: Routine enhanced abdomen and pelvis protocol with 143 mL Isovue 370 IV contrast. Comparison: None. Findings : Lung bases: No findings for active disease. Liver: Normal in caliber and attenuation. No masses. Gallbladder and bile ducts: Small dependent echogenic stones or sludge. No wall thickening or gallbladder distention. No biliary dilation. Pancreas: Unremarkable. Spleen: Absent. Adrenal glands: Unremarkable. No masses. Kidneys: 1.2 centimeter nonobstructing calculus upper pole right kidney. Left 3.8 centimeter cyst. Subcentimeter hypodensities, likely cysts. GI tract: Normal in caliber and appearance. No sign of mass or inflammation. Descending and sigmoid colon diverticuli without focal inflammation. Appendix: No acute appendicitis. Lymph nodes: No lymphadenopathy. Aorta and vessels: No aneurysm or severe stenosis. Omentum/peritoneum/retroperitoneum: No masses or infiltration. No free air or significant free fluid. Pelvic organs: Mild prostatomegaly. 5.3 centimeter maximum diameter. Preservation of the periprostatic fat planes. Bones: Extensive vertebral body bridging osteophytosis as well as fusion of multiple facet joints suggests ankylosing spondylitis or seronegative arthropathy. No sacroiliitis. Soft Tissues: No mass lesions or significant hernias. Impression: 1. Small dependent echogenic stones or sludge. No wall thickening or gallbladder distention to suggest acute cholecystitis. 2. 1.2 centimeter nonobstructing calculus upper pole right kidney. 3. Extensive vertebral body bridging osteophytosis as well as fusion of multiple facet joints suggests ankylosing spondylitis or seronegative arthropathy. No sacroiliitis. 4. Descending and sigmoid diverticulosis without focal inflammation. 5. Additional chronic findings as above. Please note that all CT scans at this facility use dose modulation, iterative reconstruction, and/or weight-based dosing when appropriate to reduce radiation dose to as low as reasonably achievable. Dictated by Florencio Lambert MD @ 02/22/2025 12:43:47 PM (Electronically Signed)
[2025-02-22 11:52] LABS: Appearance Urine Slightly Cloudy (Clear)
--- NOTE | 2025-02-22 12:47 | CRLHL7_ITS ---
For Patients: As a result of the Century Cures Act, medical imaging exams and procedure reports are released immediately into your electronic medical record. You may view this report before your referring provider. If you have questions, please contact your health care provider. INDICATION: Right upper quadrant abdomen pain. TECHNIQUE: Ultrasound abdomen limited. Sonographic images of the right upper quadrant were obtained using malhotra-scale and color Doppler images. COMPARISON: Same day CT abdomen pelvis with contrast. FINDINGS: Cholelithiasis. Positive sonographic Hicks`s sign. No pericholecystic fluid. The gallbladder is partially collapsed. The common bile duct measures 0.5 centimeters. IMPRESSION: Cholelithiasis without pericholecystic fluid or other secondary signs for acute cholecystitis. In the setting of positive sonographic Hicks sign, these findings are equivocal for acute cholecystitis. Further evaluation can be obtained with nuclear HIDA scan. Dictated by Douglas Ybarra MD @ 02/22/2025 3:02:32 PM (Electronically Signed)
== END 2025-02-22 15:50 | disposition home or self-care (01) ==
PROVIDERS: Emergency Provider Family Medicine
DX: K80.20 Calculus of gallbladder without cholecystitis without obstruction (principal); N20.0 Calculus of kidney
CPT/HCPCS: 36415; 74177; 76705; 80048; 80076; 81001; 82150; 83605; 83690; 84145; 84484; 85025; 87086; 93005; 94761; 99284; 99285; Q9967

== ENCOUNTER 2025-02-24 10:19 | Inpatient (IN) | payer MEDICARE, SELFPAY ==
[2025-02-24] VITALS (10 sets, daily range): BP systolic 132–169; BP diastolic 76–96; PULSE 68–94; RESP 16–20; TEMP 36–37.6; O2SAT 91–93; BMI 38.7; BMI 38.8
[2025-02-24 11:06] LABS: Hematocrit* 49.8 % (37.0-53.0); Hemoglobin* 16.1 gm/dL (13.5-17.5); Immature Granulocytes Abs Auto 0.02 K/uL (0.00-0.30); Immature Granulocytes Pct Auto 0.2 %; Lymphocytes Absolute Auto 5.70 K/uL (0.90-2.90); Mean Corpuscular HGB Conc 32 gm/dL (32-36); Mean Corpuscular Hemoglobin 32 pg (26-34); Mean Corpuscular Volume 98 fL (80-100); RDW Coefficient of Variation % 15.1 % (11.5-15.5); Red Blood Count* 5.11 m/uL (4.30-5.90); White Blood Count* 10.65 K/uL (4.50-11.00)
[2025-02-24 11:07] LABS: Slide Review Reflex No
[2025-02-24 11:21] LABS: Albumin* 4.1 g/dL (3.3-5.0); Chloride* 99 mmol/L (96-114); Potassium* 4.6 mmol/L (3.6-5.1); Sodium* 132 mmol/L (135-149)
[2025-02-24 11:24] LABS: Alanine Aminotransferase* 26 U/L (4-50); Anion Gap 5 mEq/L (7-15); Aspartate Amino Transferase* 34 U/L (12-35); Blood Urea Nitrogen* 15 mg/dL (7-30); Calcium* 8.9 mg/dL (8.4-10.6); Carbon Dioxide* 28 mmol/L (20-32); Creatinine* 1.0 mg/dL (0.5-1.5); Est. Creatinine Clearance* 74.37; Estimated Glomerular Filt Rate 80 ml/min; Glucose* 112 mg/dL (60-115); Total Protein* 7.3 g/dL (6.0-8.3)
[2025-02-24 11:25] LABS: Alkaline Phosphatase* 91 U/L (40-150); Bilirubin Direct* 0.3 mg/dL (0.0-0.5); Bilirubin Total* 0.7 mg/dL (0.1-1.5)
--- NOTE | 2025-02-24 11:31 | ED.ABDPAIN ---
HPI - Abdominal Pain General Chief Complaint: Abdominal Pain Stated Complaint: Gallbladder pain Time Seen by Provider: 02/24/25 10:25 History of Present Illness HPI narrative: This 69-year-old male comes in with right upper quadrant abdominal pain. He was seen a few days ago and diagnosed with cholelithiasis. He was prescribed oxycodone and has been taking this but states that about every 10 minutes he gets worsening pain despite taking pain medicines. His symptoms started about 6 days ago. When seen a few days ago he did have both ultrasound and CT imaging. He has had his appendix removed in the past. He also states that he had his spleen removed when he was in his teenage years. He is not reporting any fevers. CT imaging a few days ago did show a nonobstructive stone in the kidney. Related Data Home Medications ?Medication ?Instructions ?Recorded ?Confirmed rosuvastatin 20 mg tablet 20 mg 05/24/22 warfarin 5 mg tablet mg 05/24/22 allopurinol 100 mg tablet 200 mg PO DAILY 02/22/25 02/24/25 apixaban 5 mg tablet (Eliquis) 5 mg PO BID 02/22/25 02/24/25 bosentan 125 mg tablet 125 mg PO BID 02/22/25 02/24/25 losartan 100 mg tablet 100 mg PO DAILY 02/22/25 02/24/25 sildenafil (pulm.hypertension) 20 20 mg PO TID 02/22/25 02/24/25 mg tablet treprostinil 64 mcg cartridge with mcg inhalation 02/22/25 inhaler (Tyvaso DPI) Previous Rx's ?Medication ?Instructions ?Recorded cefdinir 300 mg capsule 300 mg PO BID #14 caps 05/24/22 Held on 02/22/25. Instructions: Doctor's Order potassium chloride 20 mEq 20 meq PO .UD #30 tabs 05/24/22 tablet,extended release Allergies Allergy/AdvReac Type Severity Reaction Status Date / Time No Known Drug Allergies Allergy Verified 02/24/25 10:33 Review of Systems Status of ROS Reports: 10 or more systems reviewed and unremarkable except as noted in History and below Narrative Constitutional: No fevers, no weight gain or loss. Eyes: No discharge. No vision changes. HENT: No congestion, no sore throat, no ear pain. Cardiovascular: No chest pain, no palpitations. Respiratory: No shortness of breath, no wheezes, no cough. Gastrointestinal: No vomiting, no diarrhea. Right upper quadrant abdominal pain as described above. Genitourinary: No dysuria, no hematuria. Musculoskeletal: Normal range of motion. Skin: No rashes, no pruritis. Neurological: No dizziness, weakness, sensory change, speech change. Endo/Heme/Allergies: No bruising or bleeding. No polydipsia. Pysch: no suicidality, no anxiety, no insomnia. All other systems reviewed and are negative. PFSH [facility] Medical History Lymphocytosis ?D72.820 - Lymphocytosis (symptomatic) (ICD-10) Myopia of both eyes with astigmatism and presbyopia ?H52.13 - Myopia, bilateral (ICD-10) ?H52.203 - Unspecified astigmatism, bilateral (ICD-10) ?H52.4 - Presbyopia (ICD-10) Vitamin D deficiency ?E55.9 - Vitamin D deficiency, unspecified (ICD-10) PVD (peripheral vascular disease) ?I73.9 - Peripheral vascular disease, unspecified (ICD-10) CVA (cerebral vascular accident) ?I63.9 - Cerebral infarction, unspecified (ICD-10) Rosacea ?L71.9 - Rosacea, unspecified (ICD-10) Pulmonary hypertension ?I27.20 - Pulmonary hypertension, unspecified (ICD-10) PFO (patent foramen ovale) ?Q21.12 - Patent foramen ovale (ICD-10) Hyperlipidemia ?E78.5 - Hyperlipidemia, unspecified (ICD-10) HTN (hypertension) ?I10 - Essential (primary) hypertension (ICD-10) Gout ?M10.9 - Gout, unspecified (ICD-10) Surgical History History of vasectomy ?Z98.52 - Vasectomy status (ICD-10) History of tympanoplasty ?Z98.890 - Other specified postprocedural states (ICD-10) History of splenectomy ?Z90.81 - Acquired absence of spleen (ICD-10) History of colonoscopy ?Z98.890 - Other specified postprocedural states (ICD-10) History of appendectomy ?Z90.49 - Acquired absence of other specified parts of digestive tract (ICD-10) Social History Smoking Status: Never smoker Do you use any of these nicotine containing products: None Second hand tobacco smoke exposure: No How often do you have a drink containing alcohol: never How often do you have six or more drinks on one occasion: Never AUDIT-C Alcohol total score: 0 Non-prescribed substance use: denies use Exam Narrative: Exam Narrative: Constitutional: Well-developed, well-nourished, no acute distress. HEENT: Normocephalic, atraumatic. Neck: Normal range of motion. Nontender. Supple. Heart: Regular. No murmurs. Normal rate. Intact distal pulses. Lungs: Clear to auscultation. No chest discomfort. No wheezes, rhonchi, or rales. Abdomen: Normal bowel sounds. Distinct pain in the right upper quadrant. No rebound tenderness. Genitalia: Deferred. Back: No midline tenderness. Normal range of motion. Extremities: Normal range of motion. No injury. Skin: Intact. No rash. Warm. No erythema or pallor. Neurologic: No altered sensation. No weakness. Alert and oriented. Psychiatric: No suicidality. No anxiety or depression. No insomnia. Nursing notes and vitals signs are reviewed. Const: Vital Signs, click to edit/add: Vital Signs - 24 hr 02/24/25 10:26 02/24/25 12:20 Temperature 99.7 F H Pulse Rate [Right Pulse Oximeter] 94 73 Respiratory Rate 18 16 Blood Pressure [Ri ght Upper Arm] 132/78 137/84 Pulse Oximetry 92 93 Oxygen Delivery Me thod Room Air Room Air Course Vital Signs Vital signs: Initial Vital Signs Temperature 99.7 F H 02/24/25 10:26 Temperature Source Temporal Artery Scan 02/24/25 10: Pulse Rate 94 02/24/25 10:26 Pulse Rhythm Regular 02/24/25 10: Pulse Strength 3+ Normal 02/24/25 10:26 Respiratory Rate 18 02/24/25 10:26 Blood Pressure 132/78 02/24/25 10: Blood Pressure Mean 96 02/24/25 10: Blood Pressure Position Sitting 02/24/25 10:26 Pulse Oximetry 92 02/24/25 10:26 Oxygen Delivery Method Room Air 02/24/25 10:26 Vital Signs Temperature 99.7 F H 02/24/25 10: Pulse Rate 94 02/24/25 10:26 Respiratory Rate 18 02/24/25 10:26 Blood Pressure 132/78 02/24/25 10:26 Pulse Oximetry 92 02/24/25 10:26 Oxygen Delivery Method Room Air 02/24/25 10:26 Temperature 99.7 F H 02/24/25 10:26 Pulse Rate 73 02/24/25 12:20 Respiratory Rate 16 02/24/25 12:20 Blood Pressure 137/84 02/24/25 12:20 Pulse Oximetry 93 02/24/25 12:20 Oxygen Delivery Method Room Air 02/24/25 12:20 MDM - Abdominal Pain MDM Narrative Medical decision making narrative: This patient comes in with persistent abdominal pain despite taking oxycodone. He was seen a few days ago and diagnosed with cholelithiasis. He arrives here with normal vital signs but pain is not adequately controlled. I did obtain labs in the show no sign of obstruction as his liver enzymes and lipase are all in normal range. Additionally his white count is also normal. I did speak with Dr. Dalton regarding these matters who plans to take him to surgery day after tomorrow. He is on Eliquis for arterial pulmonary hypertension. He will need to wean off of this for successful surgery so it is planned couple days from now. The patient did receive an IV dose of Zosyn. Lab Data Labs: Lab Results 02/24/25 Range/Units 10:55 WBC 10.65 (4.50-11.00) K/uL RBC 5.11 (4.30-5.90) m/uL Hgb 16.1 (13.5-17.5) gm/dL Hct 49.8 (37.0-53.0) % MCV 98 (80-100) fL MCH 32 (26-34) pg MCHC 32 (32-36) gm/dL RDW Coeff of Inna 15.1 (11.5-15.5) % Plt Count 312 (140-440) K/uL Neut % (Auto) 36.4 L (42.0-72.0) % Lymph % (Auto) 53.5 H (20-44) % Randall % (Auto) 6.8 (0.0-11.0) % Eos % (Auto) 2.6 (0.0-7.0) % Baso % (Auto) 0.5 (0.0-3.0) % Neut # (Auto) 3.90 (1.7-7.0) K/uL Lymph # (Auto) 5.70 H (0.90-2.90) K/uL Randall # (Auto) 0.70 (0.00-0.90) K/UL Eos # (Auto) 0.28 (0.00-0.50) K/uL Baso # (Auto) 0.05 (0.00-0.30) K/uL Abs Immat Gran (auto) 0.02 (0.00-0.30) K/uL Imm/Tot Granulo (auto) 0.2 % Sodium 132 L (135-149) mmol/L Potassium 4.6 (3.6-5.1) mmol/L Chloride 99 (96-114) mmol/L Carbon Dioxide 28 (20-32) mmol/L Anion Gap 5 L (7-15) mEq/L BUN 15 (7-30) mg/dL Creatinine 1.0 (0.5-1.5) mg/dL Estimated Creat Clear 74.37 Estimated GFR 80 ml/min Glucose 112 (60-115) mg/dL Calcium 8.9 (8.4-10.6) mg/dL Total Bilirubin 0.7 (0.1-1.5) mg/dL Direct Bilirubin 0.3 (0.0-0.5) mg/dL AST 34 (12-35) U/L ALT 26 (4-50) U/L Alkaline Phosphatase 91 (40-150) U/L Total Protein 7.3 (6.0-8.3) g/dL Albumin 4.1 (3.3-5.0) g/dL Lipase 51 (23-300) U/L Discharge Plan Discharge Clinical Impression: Cholelithiases Patient Disposition: Admitted As Observation Condition: Unchanged
[2025-02-24] MEDS: PIPERACILLIN/TAZOBACTAM 3.375 GM in 0.9 % SODIUM CHLORIDE Mini-bag 100 ML IVPB (13:14)
--- NOTE | 2025-02-24 13:38 | PM.GSCN ---
History of Present Illness Consult details Date Seen: 02/24/25 Consult date: 02/24/25 Narrative: Patient presented to the ED this morning for persistent abdominal pain. The pain started on Monday. Over the week it has become more consistent and severe. It is located on his right side and in the middle of his abdomen. He has never had anything like ths before. He states that the pain lasts less than 15 seconds and comes and goes. He denies any positional changes. He has not noticed any correlation with eating. He was seen in the emergency department 2 days ago. At that time a CT scan was obtained, which demonstrated a nonobstructing kidney stone on the right. There was sludge in stones within the gallbladder. An ultrasound of gallbladder showed again sludge and stones, no gallbladder wall thickening or pericholecystic fluid. He was sent home with some pain medicines. He has continued to need these on a daily basis. His surgical history includes an open appendectomy and open splenectomy that he had as a child. He is on Eliquis for history of TIA's, which he took this morning. Patient suffers from pulmonary hypertension. 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 ?I69.919 - Unspecified symptoms and signs involving cognitive functions following unspecified cerebrovascular disease (ICD-10) Obstructive sleep apnea ?G47.33 - Obstructive sleep apnea (adult) (pediatric) (ICD-10) Lymphocytosis ?D72.820 - Lymphocytosis (symptomatic) (ICD-10) Myopia of both eyes with astigmatism and presbyopia ?H52.13 - Myopia, bilateral (ICD-10) ?H52.203 - Unspecified astigmatism, bilateral (ICD-10) ?H52.4 - Presbyopia (ICD-10) Vitamin D deficiency ?E55.9 - Vitamin D deficiency, unspecified (ICD-10) PVD (peripheral vascular disease) ?I73.9 - Peripheral vascular disease, unspecified (ICD-10) CVA (cerebral vascular accident) ?I63.9 - Cerebral infarction, unspecified (ICD-10) Rosacea ?L71.9 - Rosacea, unspecified (ICD-10) Pulmonary hypertension ?I27.20 - Pulmonary hypertension, unspecified (ICD-10) PFO (patent foramen ovale) ?Q21.12 - Patent foramen ovale (ICD-10) Hyperlipidemia ?E78.5 - Hyperlipidemia, unspecified (ICD-10) HTN (hypertension) ?I10 - Essential (primary) hypertension (ICD-10) Gout ?M10.9 - Gout, unspecified (ICD-10) Surgical History History of vasectomy ?Z98.52 - Vasectomy status (ICD-10) History of tympanoplasty ?Z98.890 - Other specified postprocedural states (ICD-10) History of splenectomy ?Z90.81 - Acquired absence of spleen (ICD-10) History of colonoscopy ?Z98.890 - Other specified postprocedural states (ICD-10) History of appendectomy ?Z90.49 - Acquired absence of other specified parts of digestive tract (ICD-10) Family History (Updated 02/24/25 @ 15:11 by Homero Joyner MD) Father Heart disease Mother High blood pressure Social History (Updated 02/24/25 @ 15:26 by Homero Joyner MD) Narrative: He lives with his in [place]. They have 2 grown sons and 2 grandchildren. 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 Never smoker. Drinks alcohol twice a week. is healthcare power of civil rights attorney. Code status is DNR Smoking Status: Never smoker Do you use any of these nicotine containing products: None Second hand tobacco smoke exposure: No How often do you have a drink containing alcohol: never How often do you have six or more drinks on one occasion: Never AUDIT-C Alcohol total score: 0 Non-prescribed substance use: denies use Meds Home Medications and Allergies Home Medications ?Medication ?Instructions ?Recorded ?Confirmed ?Type rosuvastatin 20 mg tablet 20 mg PO HS 05/24/22 02/24/25 History allopurinol 100 mg tablet 200 mg PO DAILY 02/22/25 02/24/25 History apixaban 5 mg tablet (Eliquis) 5 mg PO BID 02/22/25 02/24/25 History bosentan 125 mg tablet 125 mg PO BID 02/22/25 02/24/25 History losartan 100 mg tablet 100 mg PO DAILY 02/22/25 02/24/25 History sildenafil (pulm.hypertension) 20 20 mg PO TID 02/22/25 02/24/25 History mg tablet treprostinil 64 mcg cartridge with 64 mcg inhalation QID 02/22/25 02/24/25 History inhaler (Tyvaso DPI) cholecalciferol (vitamin D3) 50 2,000 unit PO DAILY 02/24/25 02/24/25 History mcg (2,000 unit) capsule Allergies Allergy/AdvReac Type Severity Reaction Status Date / Time No Known Drug Allergies Allergy Verified 02/24/25 10:33 Exam Narrative: Exam Narrative: General: Alert and oriented, no acute distress respiratory: Equal breath rise bilaterally, maintained on room air CV: Well perfused Abdomen: Soft, some tenderness to deep palpation in the right upper quadrant, no guarding or rebound. Well-healed large left-sided upper incision. Const: Vital Signs, click to edit/add: Vital Signs - 24 hr 02/24/25 10:26 02/24/25 12:20 Temperature 99.7 F H Pulse Rate [Right Pulse Oximeter] 94 73 Respiratory Rate 18 16 Blood Pressure [Ri ght Upper Arm] 132/78 137/84 Pulse Oximetry 92 93 Oxygen Delivery Me thod Room Air Room Air Results Labs Labs: Abnormal lab results 02/24/25 Range/Units 10:55 Neut % (Auto) 36.4 L (42.0-72.0) % Lymph % (Auto) 53.5 H (20-44) % Lymph # (Auto) 5.70 H (0.90-2.90) K/uL Sodium 132 L (135-149) mmol/L Anion Gap 5 L (7-15) mEq/L Diabetes panel 02/24/25 Range/Units 10:55 Sodium 132 L (135-149) mmol/L Potassium 4.6 (3.6-5.1) mmol/L Chloride 99 (96-114) mmol/L Carbon Dioxide 28 (20-32) mmol/L BUN 15 (7-30) mg/dL Creatinine 1.0 (0.5-1.5) mg/dL Glucose 112 (60-115) mg/dL Calcium 8.9 (8.4-10.6) mg/dL AST 34 (12-35) U/L ALT 26 (4-50) U/L Alkaline Phosphatase 91 (40-150) U/L Total Protein 7.3 (6.0-8.3) g/dL Albumin 4.1 (3.3-5.0) g/dL Calcium panel 02/24/25 Range/Units 10:55 Calcium 8.9 (8.4-10.6) mg/dL Albumin 4.1 (3.3-5.0) g/dL Pituitary panel 02/24/25 Range/Units 10:55 Sodium 132 L (135-149) mmol/L Potassium 4.6 (3.6-5.1) mmol/L Chloride 99 (96-114) mmol/L Carbon Dioxide 28 (20-32) mmol/L BUN 15 (7-30) mg/dL Creatinine 1.0 (0.5-1.5) mg/dL Glucose 112 (60-115) mg/dL Calcium 8.9 (8.4-10.6) mg/dL Adrenal panel 02/24/25 Range/Units 10:55 Sodium 132 L (135-149) mmol/L Potassium 4.6 (3.6-5.1) mmol/L Chloride 99 (96-114) mmol/L Carbon Dioxide 28 (20-32) mmol/L BUN 15 (7-30) mg/dL Creatinine 1.0 (0.5-1.5) mg/dL Glucose 112 (60-115) mg/dL Calcium 8.9 (8.4-10.6) mg/dL Total Bilirubin 0.7 (0.1-1.5) mg/dL AST 34 (12-35) U/L ALT 26 (4-50) U/L Alkaline Phosphatase 91 (40-150) U/L Total Protein 7.3 (6.0-8.3) g/dL Albumin 4.1 (3.3-5.0) g/dL All other labs normal. Imaging Abdomen CT scan report/results: report reviewed and image reviewed Abdominal ultrasound report/results: report reviewed and image reviewed Progress Note:A&P Assessment and plan (1) Right upper quadrant abdominal pain: Status: Acute Assessment and Plan: Patient presents with 6 days intermittent RUQ abdominal pain. Vital signs stable. Patient is tender on the right side during my examination. Labs are within normal limits, no leukocytosis. LFTs within normal limits. Imaging was reviewed from patient's emergency room visit 02/22/2025, which is suspicious for cholecystitis giving pain during examination and presence of sludge/ stones within the gallbladder. Given the patient's persistent, worsening pain I am concerned about acute cholecystitis. Recommend patient be admitted to the hospital and started on IV antibiotics. Will have him hold his anticoagulation and tentatively plan for surgery Monday 02/26 morning. The hospitalist is consulted for preoperative optimization. after speaking to Dr. Joyner he did notice a rash on the patient's right side. This does appear to follow along a nerve pathway, which is concerning for possible shingles. This could explain the patient's pain on the right side, however would expect it to create a more burning or tingling sensation. Will continue to follow the rash closely for any developing blisters. Plan - Okay for low-fat diet - IV Zosyn - IV and p.o. pain meds as needed - morning at CBC and LFTs
--- NOTE | 2025-02-24 14:56 | PM.IMHP1 ---
Assessment and Plan Assessment and plan (1) Right upper quadrant abdominal pain: Problem comment: 6 days of brief sharp stabbing right upper quadrant pain. Concern for cholecystitis with his imaging results. Also consider shingles with his rash. Monitor rash. Surgical consult Status: Acute (2) Cholelithiases: Problem comment: Suspect cholecystitis Status: Acute (3) Rash: Problem comment: Small area of erythema in the right upper quadrant with possible small vesicles possible shingles? Monitor closely. Status: Acute (4) Chronic anticoagulation: Problem comment: On Eliquis for history of pulmonary embolism and pulmonary hypertension. Chart also indicates a history of paroxysmal AFib. 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 Due to anticoagulation he is admitted pending probable surgery in 2 days. Continue to follow and monitor for complications of above medical problems. Total Time Spent Total Time Spent: Total time spent today is 80 minutes in reviewing outside records, coordination of care, discussion with patient his , surgeon and other providers ongoing management of abdominal pain, cholelithiasis, rash, pulmonary hypertension Hospitalist- H&P: HPI History of Present Illness Date Seen: 02/24/25 Chief complaint: Gallbladder pain Narrative: Harry Blanca is a 69 year old male with pulmonary hypertension, untreated MARCELA, hypertension, hyperlipidemia, pulmonary embolism and obesity admitted to the hospital with right upper quadrant abdominal pain. His pain started on Monday, 6 days prior to admission. He had onset of a intermittent sharp stabbing pain in his right upper quadrant. The pain would last for less than a minute. Nothing he did seem to bring it on or make it better. His pain had no association with meals. He had no nausea or vomiting. He does report yesterday he had a decreased appetite during the day. He is not aware of any fever. He was seen in our emergency department 2 days ago for evaluation including a CT of the abdomen which showed some biliary stones or sludge but no biliary dilatation or gallbladder wall thickening. He also was seen to have a 1.2 cm nonobstructing right kidney stone. In the past 2 days he reports increasing frequency of this stabbing pain. He thinks it is been occurring as frequently as every 10 minutes but still remains very brief lasting less than a minute. He has taken oxycodone on a couple of occasions without obvious relief. Other than yesterday he has been eating relatively normal diet. Yesterday he ate lasts because of a decreased appetite. He reports bowel function has been normal with no blood in his stool, no diarrhea or constipation. He reports no urinary problems. His says he has been diagnosed with BPH but he does not get up to void at night. He has pulmonary hypertension for which he is under the care of Dr. Peewee Moffett at [facility]. He is treated with sildenafil, bosenten and inhaled treprostinil. He reports no significant symptoms. He reports no exertional dyspnea with usual activities. He does have a history of pulmonary embolism from October of 2022. At that time he was having recurrent syncope. He is on chronic anticoagulation for his pulmonary hypertension and pulmonary embolism. He has a small rash on his right upper quadrant of his abdomen which he reports is new. 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 He does have a history of shingles in the past he also has a history of vaccination for shingles. Review of Systems Narrative: Other than his right upper quadrant pain he reports feeling well with no other concerns. 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 ?I69.919 - Unspecified symptoms and signs involving cognitive functions following unspecified cerebrovascular disease (ICD-10) Obstructive sleep apnea ?G47.33 - Obstructive sleep apnea (adult) (pediatric) (ICD-10) Lymphocytosis ?D72.820 - Lymphocytosis (symptomatic) (ICD-10) Myopia of both eyes with astigmatism and presbyopia ?H52.13 - Myopia, bilateral (ICD-10) ?H52.203 - Unspecified astigmatism, bilateral (ICD-10) ?H52.4 - Presbyopia (ICD-10) Vitamin D deficiency ?E55.9 - Vitamin D deficiency, unspecified (ICD-10) PVD (peripheral vascular disease) ?I73.9 - Peripheral vascular disease, unspecified (ICD-10) CVA (cerebral vascular accident) ?I63.9 - Cerebral infarction, unspecified (ICD-10) Rosacea ?L71.9 - Rosacea, unspecified (ICD-10) Pulmonary hypertension ?I27.20 - Pulmonary hypertension, unspecified (ICD-10) PFO (patent foramen ovale) ?Q21.12 - Patent foramen ovale (ICD-10) Hyperlipidemia ?E78.5 - Hyperlipidemia, unspecified (ICD-10) HTN (hypertension) ?I10 - Essential (primary) hypertension (ICD-10) Gout ?M10.9 - Gout, unspecified (ICD-10) Surgical History History of vasectomy ?Z98.52 - Vasectomy status (ICD-10) History of tympanoplasty ?Z98.890 - Other specified postprocedural states (ICD-10) History of splenectomy ?Z90.81 - Acquired absence of spleen (ICD-10) History of colonoscopy ?Z98.890 - Other specified postprocedural states (ICD-10) History of appendectomy ?Z90.49 - Acquired absence of other specified parts of digestive tract (ICD-10) Family History (Updated 02/24/25 @ 15:11 by Homero Joyner MD) Father Heart disease Mother High blood pressure Social History (Updated 02/24/25 @ 15:26 by Homero Joyner MD) Narrative: He lives with his in [place]. They have 2 grown sons and 2 grandchildren. Retired from working in [email or web address] at [employer]. Never smoker. Drinks alcohol twice a week. is healthcare power of attorney lawyer. Code status is DNR Smoking Status: Never smoker Do you use any of these nicotine containing products: None Second hand tobacco smoke exposure: No How often do you have a drink containing alcohol: never How often do you have six or more drinks on one occasion: Never AUDIT-C Alcohol total score: 0 Non-prescribed substance use: denies use Meds Home Medications and Allergies Home Medications ?Medication ?Instructions ?Recorded ?Confirmed ?Type rosuvastatin 20 mg tablet 20 mg PO HS 05/24/22 02/24/25 History allopurinol 100 mg tablet 200 mg PO DAILY 02/22/25 02/24/25 History apixaban 5 mg tablet (Eliquis) 5 mg PO BID 02/22/25 02/24/25 History bosentan 125 mg tablet 125 mg PO BID 02/22/25 02/24/25 History losartan 100 mg tablet 100 mg PO DAILY 02/22/25 02/24/25 History sildenafil (pulm.hypertension) 20 20 mg PO TID 02/22/25 02/24/25 History mg tablet treprostinil 64 mcg cartridge with 64 mcg inhalation QID 02/22/25 02/24/25 History inhaler (Tyvaso DPI) cholecalciferol (vitamin D3) 50 2,000 unit PO DAILY 02/24/25 02/24/25 History mcg (2,000 unit) capsule Home Medication Comments: His is actively managing medications Allergies Allergy/AdvReac Type Severity Reaction Status Date / Time No Known Drug Allergies Allergy Verified 02/24/25 10:33 Exam Narrative: Exam Narrative: He is alert and appears in no distress. Eyes normal. Sclerae nonicteric. Oropharynx with small airway. Mild erythema. Neck is supple without mass or adenopathy. Respirations are clear to auscultation without wheezing rales or rhonchi. Cardiovascular: S1, S2, regular rate and rhythm. Abdomen: He has a 4-5 cm long by 1 cm wide linear patch of erythema with what appears to be 3 small papules, possible tiny vesicles, horizontally oriented in the right upper quadrant. Bowel sounds are present. Abdomen is soft with mild right upper quadrant tenderness. I do not palpate a mass. He also has some sensitivity to light touch on the skin around this area of erythema. No other abdominal tenderness or mass. Const: Vital Signs, click to edit/add: Vital Signs - 24 hr 02/24/25 10:26 02/24/25 12:20 02/24/25 13:44 Temperature 99.7 F H Pulse Rate [Pulse Oximeter] Pulse Rate [Right Pulse Oximeter] 94 73 Respiratory Rate 18 16 Blood Pressure [Ri ght Arm] Blood Pressure [Ri ght Upper Arm] 132/78 137/84 Pulse Oximetry 92 93 91 Oxygen Delivery Me thod Room Air Room Air Room Air 02/24/25 13:45 Temperature 96.8 F L Pulse Rate [Pulse Oximeter] 80 Pulse Rate [Right Pulse Oximeter] Respiratory Rate 20 Blood Pressure [Ri ght Arm] 144/80 H Blood Pressure [Ri ght Upper Arm] Pulse Oximetry 91 Oxygen Delivery Me thod Room Air Documenting provider has reviewed patient's vital signs: yes Hospitalist - H&P: Result Labs Labs: Short CBC 02/24/25 Range/Units 10:55 WBC 10.65 (4.50-11.00) K/uL Hgb 16.1 (13.5-17.5) gm/dL Hct 49.8 (37.0-53.0) % Plt Count 312 (140-440) K/uL BMP 02/24/25 10:55 Sodium 132 L Potassium 4.6 Chloride 99 Carbon Dioxide 28 BUN 15 Creatinine 1.0 Glucose 112 Calcium 8.9 Liver Function 02/24/25 Range/Units 10:55 Total Bilirubin 0.7 (0.1-1.5) mg/dL Direct Bilirubin 0.3 (0.0-0.5) mg/dL AST 34 (12-35) U/L ALT 26 (4-50) U/L Alkaline Phosphatase 91 (40-150) U/L Albumin 4.1 (3.3-5.0) g/dL Imaging CT scan - abdomen: Radiologist's impression: From 02/22/2025: Indication: 69-year-old male with right upper quadrant pain. Technique: Routine enhanced abdomen and pelvis protocol with 143 mL Isovue 370 IV contrast. Comparison: None. Findings : Lung bases: No findings for active disease. Liver: Normal in caliber and attenuation. No masses. Gallbladder and bile ducts: Small dependent echogenic stones or sludge. No wall thickening or gallbladder distention. No biliary dilation. Pancreas: Unremarkable. Spleen: Absent. Adrenal glands: Unremarkable. No masses. Kidneys: 1.2 centimeter nonobstructing calculus upper pole right kidney. Left 3.8 centimeter cyst. Subcentimeter hypodensities, likely cysts. GI tract: Normal in caliber and appearance. No sign of mass or inflammation. Descending and sigmoid colon diverticuli without focal inflammation. Appendix: No acute appendicitis. Lymph nodes: No lymphadenopathy. Aorta and vessels: No aneurysm or severe stenosis. Omentum/peritoneum/retroperitoneum: No masses or infiltration. No free air or significant free fluid. Pelvic organs: Mild prostatomegaly. 5.3 centimeter maximum diameter. Preservation of the periprostatic fat planes. Bones: Extensive vertebral body bridging osteophytosis as well as fusion of multiple facet joints suggests ankylosing spondylitis or seronegative arthropathy. No sacroiliitis. Soft Tissues: No mass lesions or significant hernias. Impression: 1. Small dependent echogenic stones or sludge. No wall thickening or gallbladder distention to suggest acute cholecystitis. 2. 1.2 centimeter nonobstructing calculus upper pole right kidney. 3. Extensive vertebral body bridging osteophytosis as well as fusion of multiple facet joints suggests ankylosing spondylitis or seronegative arthropathy. No sacroiliitis. 4. Descending and sigmoid diverticulosis without focal inflammation. 5. Additional chronic findings as above. US - abdomen: Radiologist's impression: INDICATION: Right upper quadrant abdomen pain. TECHNIQUE: Ultrasound abdomen limited. Sonographic images of the right upper quadrant were obtained using malhotra-scale and color Doppler images. COMPARISON: Same day CT abdomen pelvis with contrast. FINDINGS: Cholelithiasis. Positive sonographic Hicks`s sign. No pericholecystic fluid. The gallbladder is partially collapsed. The common bile duct measures 0.5 centimeters. IMPRESSION: Cholelithiasis without pericholecystic fluid or other secondary signs for acute cholecystitis. In the setting of positive sonographic Hicks sign, these findings are equivocal for acute cholecystitis. Further evaluation can be obtained with nuclear HIDA scan.
--- NOTE | 2025-02-24 17:48 | PC.NURSE ---
RUQ below right nipple
--- NOTE | 2025-02-24 19:17 | PC.NURSE ---
pt admitted to floor 1330, no reports of pain during shift, Ind in room. Pt orientated to room and call light, pt sleeping in chair at this time. No concerns noted
[2025-02-24] MEDS: TREPROSTINIL IH (19:36)
[2025-02-24] MEDS: SODIUM CHLORIDE 0.9 % (FLUSH) 10 ML SYRINGE 5 ML IVF (21:42)
[2025-02-24] MEDS: SILDENAFIL CITRATE 20 MG TABLET PO (21:42)
[2025-02-24] MEDS: ROSUVASTATIN CALCIUM 10 MG TABLET 20 MG PO (21:48)
[2025-02-25 03:15] VITALS: BP 131/78; PULSE 68; RESP 16; TEMP 36.3; O2SAT 91
--- NOTE | 2025-02-25 06:26 | PC.NURSE ---
end of shift: Pt. AOx4. VSS. Afebrile. Pt. rates pain 11/14; pain med given- see EMAR. Pt. up to sit in chair, slept in bed. TEDS applied at HS. Pt. denies N/V. Pt. is pleasant & cooperative; able to make needs known. in to see pt. and R upper quadrant skin observed.
[2025-02-25 07:00] VITALS: BP 151/83; PULSE 63; RESP 22; TEMP 36; O2SAT 96
--- NOTE | 2025-02-25 08:17 | CRLHL7_ITS ---
For Patients: As a result of the Century Cures Act, medical imaging exams and procedure reports are released immediately into your electronic medical record. You may view this report before your referring provider. If you have questions, please contact your health care provider. INDICATION: 69-year-old man with history of biliary colic TECHNIQUE: 8 mCi Tc 99m Mebrofenin were administered intravenously and serial static images were obtained over the anterior abdomen over 60 minutes, demonstrating radiotracer uptake within the gallbladder and demonstrating tracer exiting into the small bowel. Subsequently, 2.6 Micrograms cholecystokinin was administered intravenously and the anterior abdomen was serially imaged with static views for another 30 minutes. COMPARISON: Abdominal ultrasound 02/22/2025. CT abdomen/pelvis 02/22/2025. FINDINGS: Initial 60 minutes images: There is normal radionuclide activity in the liver, common bile duct, gallbladder and small bowel. There is no evidence for cystic or common duct obstruction or intrinsic liver disease. After administration of cholecystokinin, minimal tracer is demonstrated exiting the gallbladder into the common bile duct and small bowel, with substantial residual tracer in the gallbladder. The gallbladder ejection fraction measures 12 %. Normal range for GB EF: Equal to or greater than 35%. IMPRESSION: 1. No evidence of cystic duct obstruction to support acute cholecystitis. No evidence of common bile duct obstruction. 2. Gallbladder ejection fraction measures 12 %, below normal limits. Findings are nonspecific, but can be seen with gallbladder dysfunction. Dictated by Homero Rutherford MD @ 02/25/2025 2:25:45 PM (Electronically Signed)
--- NOTE | 2025-02-25 08:38 | PM.GSPN ---
Subjective Subjective Date Seen: 02/25/25 Interval history: Patient reports right-sided abdominal pain that started last night. It came on last night while he was sleeping. He did take some narcotic pain pills, which helped the pain but has not made it go away completely. He denies any association with the food he ate yesterday. A small rash on his abdomen has not been irritating him or increased in size. Exam Narrative: Exam Narrative: Abd: obese abdomen, soft, some tenderness RUQ with deep palpation. No guarding or rebound. Erythematous rash in the RUQ Const: Vital Signs, click to edit/add: Vital Signs - 24 hr 02/24/25 10:26 02/24/25 12:20 02/24/25 13:44 Temperature 99.7 F H Pulse Rate [Pulse Oximeter] Pulse Rate [Right Pulse Oximeter] 94 73 Respiratory Rate 18 16 Blood Pressure [Ri ght Arm] Blood Pressure [Ri ght Upper Arm] 132/78 137/84 Pulse Oximetry 92 93 91 Oxygen Delivery Me thod Room Air Room Air Room Air 02/24/25 13:45 02/24/25 15:00 02/24/25 15:00 Temperature 96.8 F L Pulse Rate [Pulse Oximeter] 80 80 Pulse Rate [Right Pulse Oximeter] Respiratory Rate 20 20 20 Blood Pressure [Ri ght Arm] 144/80 H Blood Pressure [Ri ght Upper Arm] Pulse Oximetry 91 91 Oxygen Delivery [place] thod Room Air Room Air 02/24/25 18:00 02/24/25 20:19 02/24/25 22:50 Temperature 97.5 F L 97.4 F L Pulse Rate [Pulse Oximeter] 71 78 80 Pulse Rate [Right Pulse Oximeter] Respiratory Rate 18 20 Blood Pressure [Ri ght Arm] 148/83 H 148/76 H 169/96 H Blood Pressure [Ri ght Upper Arm] Pulse Oximetry 93 91 93 Oxygen Delivery Me thod Room Air Room Air Room Air 02/24/25 23:00 02/24/25 23:00 02/24/25 23:15 Temperature 97.4 F L Pulse Rate [Pulse Oximeter] 68 80 Pulse Rate [Right Pulse Oximeter] Respiratory Rate 16 16 16 Blood Pressure [Ri ght Arm] 169/96 H Blood Pressure [Ri ght Upper Arm] Pulse Oximetry 91 91 Oxygen Delivery Me thod Room Air Room Air 02/25/25 03:15 Temperature 97.4 F L Pulse Rate [Pulse Oximeter] 68 Pulse Rate [Right Pulse Oximeter] Respiratory Rate 16 Blood Pressure [Ri ght Arm] 131/78 Blood Pressure [Ri ght Upper Arm] Pulse Oximetry 91 Oxygen Delivery Me thod Room Air Labs/Imaging Labs Labs: Pending Progress Note:A&P Assessment and plan (1) Right upper quadrant abdominal pain: Status: Acute Plan Patient presents with 7 days right-sided abdominal pain. This is suspicious for cholecystitis, although he does have atypical symptoms such as the brief nature of his attacks with no correlation to diet. Rash is stable this morning, making shingles less likely. Recommend a HIDA scan this morning for further evaluation. Patient to continue to hold his anticoagulation. - NPO for HIDA scan - IV and PO pain meds as needed - follow up labs and HIDA scan
[2025-02-25 08:54] LABS: Hematocrit* 50.5 % (37.0-53.0); Hemoglobin* 16.5 gm/dL (13.5-17.5); Immature Granulocytes Pct Auto 0.2 %; Mean Corpuscular HGB Conc 33 gm/dL (32-36); Mean Corpuscular Hemoglobin 32 pg (26-34); Mean Corpuscular Volume 97 fL (80-100); RDW Coefficient of Variation % 15.0 % (11.5-15.5); Red Blood Count* 5.23 m/uL (4.30-5.90); White Blood Count* 12.09 K/uL (4.50-11.00)
[2025-02-25 08:55] LABS: Immature Granulocytes Abs Auto 0.00 K/uL (0.00-0.30); Lymphocytes Absolute Auto 6.10 K/uL (0.90-2.90)
[2025-02-25 08:56] LABS: Slide Review Reflex No
[2025-02-25] MEDS: SILDENAFIL CITRATE 20 MG TABLET PO ×2 (09:08→14:39)
[2025-02-25 09:09] LABS: Chloride* 101 mmol/L (96-114)
[2025-02-25 09:10] LABS: Albumin* 4.1 g/dL (3.3-5.0); Potassium* 4.4 mmol/L (3.6-5.1); Sodium* 137 mmol/L (135-149)
[2025-02-25] MEDS: LOSARTAN POTASSIUM 50 MG TABLET 100 MG PO (09:11)
[2025-02-25 09:12] LABS: Blood Urea Nitrogen* 18 mg/dL (7-30); Creatinine* 0.9 mg/dL (0.5-1.5); Est. Creatinine Clearance* 74.37; Estimated Glomerular Filt Rate 91 ml/min
[2025-02-25 09:13] LABS: Alanine Aminotransferase* 27 U/L (4-50); Alkaline Phosphatase* 88 U/L (40-150); Anion Gap 9 mEq/L (7-15); Aspartate Amino Transferase* 34 U/L (12-35); Bilirubin Total* 0.9 mg/dL (0.1-1.5); Calcium* 9.1 mg/dL (8.4-10.6); Carbon Dioxide* 27 mmol/L (20-32); Glucose* 98 mg/dL (60-115); Total Protein* 7.4 g/dL (6.0-8.3)
[2025-02-25] MEDS: ACETAMINOPHEN INJ 1,000 MG/100 ML VIAL 400 MG IVPB (09:51)
[2025-02-25] MEDS: SODIUM CHLORIDE 0.9 % (FLUSH) 10 ML SYRINGE 5 ML IVF (09:57)
[2025-02-25] MEDS: TREPROSTINIL IH ×3 (10:01→18:30)
[2025-02-25 11:00] VITALS: BP 149/77; PULSE 66; RESP 18; TEMP 36; O2SAT 96
--- NOTE | 2025-02-25 14:54 | P.IMPN_ITS ---
Assessment and Plan Assessment and plan (1) Right upper quadrant abdominal pain: Problem comment: -differential: biliary dyskinesia (cholelithiasis without cholecystitis, GBEF 12%, nephrolithiasis (nonobstructing large stone, micro hematuria, on Xarelto), shingles, functional abdominal pain -WBC is elevated; LFTs wnl, imaging is described above -will discuss with general surgeon given host of comorbidities, no precise diagnosis Status: Acute (2) Cholelithiases: Problem comment: Dysfunctional gallbladder with a 12% ejection fraction, known stones. Status: Acute (3) Pulmonary artery hypertension: Problem comment: -followed by pulmonary medicine, Laz Humphreys DO -WHO Category 1, Functional class 2-3. -etiology post-splenectomy complications -On Tyvaso, Sildenafil, Tracleer -h/o of PFO and PE and CVA -h/o of untreated MARCELA -obese -h/o of syncope -due for f/u echo and office visit Status: Acute (4) Chronic anticoagulation: Problem comment: On Eliquis for history of pulmonary embolism and pulmonary artery hypertension. Chart also indicates a history of paroxysmal AFib. 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 Monitor closely. -no change 02/25 Status: Acute (8) Obesity (BMI 35.0-39.9 without comorbidity): Status: Acute (9) Nephrolithiasis: Status: Acute (10) Obstructive sleep apnea: Problem comment: Does not tolerate CPAP Status: Acute Subjective Date Seen: 02/25/25 Interval history: Daily Progress Note - Hospital Medicine Day #: 2 CC: abdominal pain 24 HOUR UPDATE: -no oxy since 1 am -toradol 30 at 0900 -Hida results below -reviewed pulmonary notes from Mar 2024 and Feb 2024 echo WBC 10 --> 12 (50% lymphocytes) electrolytes improved Mar 31 - pulmonary clinic visit * PAH. ?FC II-III, WHO group 1. * History splenectomy. ? * PATENT FORAMEN OVALE with right to left shunt and history of stroke * Admission for recurrent syncope 10/2022 * Pulmonary embolism Plan * Tyvaso DPI 64 mcg four times daily, * Sildenafil 20 mg oral tid * tracleer 125 mg oral twice daily * Monthly LFT * DOAC indefinitely * Follow up in 1 year with echocardiogram, BNP. Gait is becoming more and more unsteady. Will tentatively not plan on 6 MWT ECHO (without definity) Feb 2024. Final Conclusion Previous Study: 10/18/2022 Technically difficult study-unable to use definity d/t unsuccessful IV att empts Normal left ventricular chamber size. Normal left ventricular systolic function. Estimated left ventricular ejection fraction is 60%. Right ventricular chamber enlargement. Borderline decreased right ventricular systolic function. TAPSE could not be measured. Right ventricular systolic pressure cannot be estimated due to inability to detect peak tricuspid regurgitation Doppler velocity. Aortic sinus of Valsalva is normal in size (4.3 cm, ZScore = 1.4). Mild ascending aorta dilatation (4.2 cm). Prior study noted aortic sinus of Valsalva normal in size (4.2 cm, ZScore = 1.2). Mild ascending aorta dilatation (4.3 cm). HIDA 02/25 The gallbladder ejection fraction measures 12 %. Normal range for GB EF: Equal to or greater than 35%. Objective: comfortably in bedside chair Vitals:reviewed. afebrile. not tachycardia. see above Lungs: Clear. Not on oxygen. Cardiac: S1S2. Disposition/Potential discharge - TBD Today I spent 50minutes seeing the patient, reviewing Expanse and EPIC notes/diagnostics, discussing the care plan with our care time that includes social work, PT/OT, pharmacy, RT, shelter and documenting my impressions and plan in the medical record. Exam Const: Vital Signs, click to edit/add: Vital Signs - 24 hr 02/24/25 15:00 02/24/25 15:00 02/24/25 18:00 Temperature Pulse Rate [Pulse Oximeter] 80 71 Respiratory Rate 20 20 Blood Pressure [Ri ght Arm] 148/83 H Pulse Oximetry 91 93 Oxygen Delivery Me thod Room Air Room Air 02/24/25 20:19 02/24/25 22:50 02/24/25 23:00 Temperature 97.5 F L 97.4 F L Pulse Rate [Pulse Oximeter] 78 80 68 Respiratory Rate 18 20 16 Blood Pressure [Ri ght Arm] 148/76 H 169/96 H Pulse Oximetry 91 93 Oxygen Delivery Me thod Room Air Room Air 02/24/25 23:00 02/24/25 23:15 02/25/25 03:15 Temperature 97.4 F L 97.4 F L Pulse Rate [Pulse Oximeter] 80 68 Respiratory Rate 16 16 16 Blood Pressure [Ri ght Arm] 169/96 H 131/78 Pulse Oximetry 91 91 91 Oxygen Delivery Me thod Room Air Room Air Room Air 02/25/25 07:00 02/25/25 07:00 02/25/25 11:00 Temperature 96.8 F L 96.8 F L Pulse Rate [Pulse Oximeter] 63 66 Respiratory Rate 22 18 Blood Pressure [Ri ght Arm] 151/83 H 149/77 H Pulse Oximetry 96 96 96 Oxygen Delivery Me thod Room Air Room Air Room Air Labs Labs: Laboratory Results - last 24 hr 02/25/25 08:49 WBC 12.09 H RBC 5.23 Hgb 16.5 Hct 50.5 MCV 97 MCH 32 MCHC 33 RDW Coeff of Inna 15.0 Plt Count 302 Neut % (Auto) 36.7 L Lymph % (Auto) 50.2 H Storey % (Auto) 8.9 Eos % (Auto) 3.6 Baso % (Auto) 0.4 Neut # (Auto) 4.40 Lymph # (Auto) 6.10 H Storey # (Auto) 1.10 H Eos # (Auto) 0.40 Baso # (Auto) 0.00 Abs Immat Gran (auto) 0.00 Imm/Tot Granulo (auto) 0.2 Sodium 137 Potassium 4.4 Chloride 101 Carbon Dioxide 27 Anion Gap 9 BUN 18 Creatinine 0.9 Estimated Creat Clear 74.37 Estimated GFR 91 Glucose 98 Calcium 9.1 Total Bilirubin 0.9 AST 34 ALT 27 Alkaline Phosphatase 88 Total Protein 7.4 Albumin 4.1
[2025-02-25 15:00] VITALS: BP 142/84; PULSE 67; RESP 16; TEMP 36.1; O2SAT 95
--- NOTE | 2025-02-25 18:56 | PC.NURSE ---
Pt cooperative with cares, NPO at beginning of shift, Opioids held per order. Pt given prn IV medication reported pain 1-08/15. pt returned to Heart healthy diet. No complaints of nausea or pain. pt appetite fair. IND in room, pt refused TEDs. pt sitting in chair, no concerns at this time
[2025-02-25 19:42] VITALS: BP 141/78; PULSE 81; RESP 18; TEMP 36.4; O2SAT 91
--- NOTE | 2025-02-25 19:57 | PM.DS1 ---
DS: Providers Provider Date Seen: 02/25/25 Date of admission: 02/24/25 14:53 Primary care physician: Not a Local Provider Admitting Clinician: Loco Johansen MD Attending Physician on discharge: Loco Johansen MD Date of Discharge: 02/25/25 DS: Diagnosis Discharge Diagnosis (1) Cholecystitis: Status: Acute Problem details: Patient was clinically suspected to have cholecystitis. He was clinically stable during his hospital stay. Treated medically. HIDA scan showed gallbladder with 12% ejection fraction. Due to his pulmonary arterial hypertension and other comorbidities he was felt to be high risk for surgery here. Initially attempted to transfer to tertiary [facility] hospital but after conversation with patient and his decision was made to discharge to home and arrange urgent outpatient follow-up. (2) Cholelithiases: Status: Acute Problem details: Dysfunctional gallbladder with a 12% ejection fraction, known stones. (3) Pulmonary artery hypertension: Status: Acute Problem details: -followed by pulmonary medicine, Laz Humphreys DO -WHO Category 1, Functional class 2-3. -etiology post-splenectomy complications -On Tyvaso, Sildenafil, Tracleer -h/o of PFO and PE and CVA -h/o of untreated MARCELA -obese -h/o of syncope -due for f/u echo and office visit (4) Microhematuria: Status: Acute Problem details: -known large kidney stone on the right; 1.2 cm - nonobstructing -has been on a chronic DOAC (5) Rash: Status: Acute Problem details: Small area of erythema in the right upper quadrant with possible small vesicles possible shingles? Monitor closely. -no change 02/25 (6) Chronic anticoagulation: Status: Acute Problem details: On Eliquis for history of pulmonary embolism and pulmonary artery hypertension. Chart also indicates a history of paroxysmal AFib. 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 Seen in the emergency department 2 days ago with concern for cholelithiasis. Recommended outpatient follow-up. He return to the emergency room with ongoing right upper quadrant pain. CT and ultrasound showed cholelithiasis without definite cholecystitis. He did have tenderness over his gallbladder with ultrasound. Laboratory studies were normal. After evaluating his comorbidities it was felt that due to pulmonary hypertension and other comorbidities he was at too high risk to have surgery here in [place]. Attempts to transfer to [facility], at the [facility] preferred hospital, were unsuccessful due to no bed availability. Based on that the decision was made that he would go home and get urgent outpatient follow-up. At the time of discharge he was feeling well and had just tolerated eating a cheeseburger against medical advice. Status at Discharge Functional status at discharge: independent ambulation Overall status at discharge: patient is back to baseline Time Spent with Patient Time attestation: Total time spent providing and/or coordinating discharge services: 60 minutes Exam Narrative: Exam Narrative: Right upper quadrant rash is unchanged. He has mild right upper quadrant tenderness which is also unchanged. Const: Vital Signs, click to edit/add: Vital Signs - 24 hr 02/24/25 20:19 02/24/25 22:50 02/24/25 23:00 Temperature 97.5 F L 97.4 F L Pulse Rate [Pulse Oximeter] 78 80 68 Respiratory Rate 18 20 16 Blood Pressure [Ri ght Arm] 148/76 H 169/96 H Pulse Oximetry 91 93 Oxygen Delivery Me thod Room Air Room Air 02/24/25 23:00 02/24/25 23:15 02/25/25 03:15 Temperature 97.4 F L 97.4 F L Pulse Rate [Pulse Oximeter] 80 68 Respiratory Rate 16 16 16 Blood Pressure [Ri ght Arm] 169/96 H 131/78 Pulse Oximetry 91 91 91 Oxygen Delivery Me thod Room Air Room Air Room Air 02/25/25 07:00 02/25/25 07:00 02/25/25 11:00 Temperature 96.8 F L 96.8 F L Pulse Rate [Pulse Oximeter] 63 66 Respiratory Rate 22 18 Blood Pressure [Ri ght Arm] 151/83 H 149/77 H Pulse Oximetry 96 96 96 Oxygen Delivery Me thod Room Air Room Air Room Air 02/25/25 15:00 02/25/25 15:00 02/25/25 15:00 Temperature 97.0 F L Pulse Rate [Pulse Oximeter] 67 67 Respiratory Rate 16 16 16 Blood Pressure [Ri ght Arm] 142/84 H Pulse Oximetry 95 95 Oxygen Delivery Me thod Room Air Room Air 02/25/25 19:42 Temperature 97.5 F L Pulse Rate [Pulse Oximeter] 81 Respiratory Rate 18 Blood Pressure [Ri ght Arm] 141/78 H Pulse Oximetry 91 Oxygen Delivery Me thod Room Air Documenting provider has reviewed patient's vital signs: yes DS: Data Data Completed and Pending Labs on day of discharge: Labs from last 24 hours 02/25/25 02/25/25 02/24/25 15:42 08:49 10:55 WBC 12.09 H RBC 5.23 Hgb 16.5 Hct 50.5 MCV 97 MCH 32 MCHC 33 RDW Coeff of Inna 15.0 Plt Count 302 Neut % (Auto) 36.7 L Lymph % (Auto) 50.2 H Woods % (Auto) 8.9 Eos % (Auto) 3.6 Baso % (Auto) 0.4 Neut # (Auto) 4.40 Lymph # (Auto) 6.10 H Woods # (Auto) 1.10 H Eos # (Auto) 0.40 Baso # (Auto) 0.00 Abs Immat Gran (auto) 0.00 Imm/Tot Granulo (auto) 0.2 Sodium 137 Potassium 4.4 Chloride 101 Carbon Dioxide 27 Anion Gap 9 BUN 18 Creatinine 0.9 Estimated Creat Clear 74.37 Estimated GFR 91 Glucose 98 Calcium 9.1 Total Bilirubin 0.9 AST 34 ALT 27 Alkaline Phosphatase 88 C-Reactive Protein < 0.5 L < 0.5 L Total Protein 7.4 Albumin 4.1 Lab Acknowledgement Test Added Imaging US - abdomen: My impression: Indication: 69-year-old male with right upper quadrant pain. Technique: Routine enhanced abdomen and pelvis protocol with 143 mL Isovue 370 IV contrast. Comparison: None. Findings : Lung bases: No findings for active disease. Liver: Normal in caliber and attenuation. No masses. Gallbladder and bile ducts: Small dependent echogenic stones or sludge. No wall thickening or gallbladder distention. No biliary dilation. Pancreas: Unremarkable. Spleen: Absent. Adrenal glands: Unremarkable. No masses. Kidneys: 1.2 centimeter nonobstructing calculus upper pole right kidney. Left 3.8 centimeter cyst. Subcentimeter hypodensities, likely cysts. GI tract: Normal in caliber and appearance. No sign of mass or inflammation. Descending and sigmoid colon diverticuli without focal inflammation. Appendix: No acute appendicitis. Lymph nodes: No lymphadenopathy. Aorta and vessels: No aneurysm or severe stenosis. Omentum/peritoneum/retroperitoneum: No masses or infiltration. No free air or significant free fluid. Pelvic organs: Mild prostatomegaly. 5.3 centimeter maximum diameter. Preservation of the periprostatic fat planes. Bones: Extensive vertebral body bridging osteophytosis as well as fusion of multiple facet joints suggests ankylosing spondylitis or seronegative arthropathy. No sacroiliitis. Soft Tissues: No mass lesions or significant hernias. Impression: 1. Small dependent echogenic stones or sludge. No wall thickening or gallbladder distention to suggest acute cholecystitis. 2. 1.2 centimeter nonobstructing calculus upper pole right kidney. 3. Extensive vertebral body bridging osteophytosis as well as fusion of multiple facet joints suggests ankylosing spondylitis or seronegative arthropathy. No sacroiliitis. 4. Descending and sigmoid diverticulosis without focal inflammation. 5. Additional chronic findings as above. Radiologist's impression: INDICATION: Right upper quadrant abdomen pain. TECHNIQUE: Ultrasound abdomen limited. Sonographic images of the right upper quadrant were obtained using malhotra-scale and color Doppler images. COMPARISON: Same day CT abdomen pelvis with contrast. FINDINGS: Cholelithiasis. Positive sonographic Hicks`s sign. No pericholecystic fluid. The gallbladder is partially collapsed. The common bile duct measures 0.5 centimeters. IMPRESSION: Cholelithiasis without pericholecystic fluid or other secondary signs for acute cholecystitis. In the setting of positive sonographic Hicks sign, these findings are equivocal for acute cholecystitis. Further evaluation can be obtained with nuclear HIDA scan. HIDA scan: Radiologist's impression: INDICATION: 69-year-old man with history of biliary colic TECHNIQUE: 8 mCi Tc 99m Mebrofenin were administered intravenously and serial static images were obtained over the anterior abdomen over 60 minutes, demonstrating radiotracer uptake within the gallbladder and demonstrating tracer exiting into the small bowel. Subsequently, 2.6 Micrograms cholecystokinin was administered intravenously and the anterior abdomen was serially imaged with static views for another 30 minutes. COMPARISON: Abdominal ultrasound 02/22/2025. CT abdomen/pelvis 02/22/2025. FINDINGS: Initial 60 minutes images: There is normal radionuclide activity in the liver, common bile duct, gallbladder and small bowel. There is no evidence for cystic or common duct obstruction or intrinsic liver disease. After administration of cholecystokinin, minimal tracer is demonstrated exiting the gallbladder into the common bile duct and small bowel, with substantial residual tracer in the gallbladder. The gallbladder ejection fraction measures 12 %. Normal range for GB EF: Equal to or greater than 35%. IMPRESSION: 1. No evidence of cystic duct obstruction to support acute cholecystitis. No evidence of common bile duct obstruction. 2. Gallbladder ejection fraction measures 12 %, below normal limits. Findings are nonspecific, but can be seen with gallbladder dysfunction. Discharge Plan Discharge Disposition: Home w/ Parent or Adult Date of Admission: 02/24/25 14:53 Attending Provider on Discharge: Homero Joyner Primary Care Provider: Provider,Not a Local Condition: Unchanged Anticipated Discharge Date/Time: 02/25/25 19:48 Discharge Medications: New amoxicillin-pot clavulanate 875-125 mg tablet 1 tab PO BID Qty: 14 0RF Continued allopurinol 100 mg tablet 200 mg PO DAILY losartan 100 mg tablet 100 mg PO DAILY Eliquis 5 mg tablet 5 mg PO BID bosentan 125 mg tablet 125 mg PO BID sildenafil (pulm.hypertension) 20 mg tablet 20 mg PO TID Rx Instructions: administer doses at least 4-6 hours apart Tyvaso DPI 64 mcg cartridge with inhaler 64 mcg inhalation QID cholecalciferol (vitamin D3) 50 mcg (2,000 unit) capsule 2,000 unit PO DAILY rosuvastatin 20 mg tablet 20 mg PO HS Patient Comments: TAKE 1 TABLET BY MOUTH AT BEDTIME Discharge Orders: Discharge Order (Routine); Ordered 02/25/25 Ordered By: Homero Joyner Additional Instructions: If you get ill with return of right upper quadrant abdominal pain, vomiting or fever, go to the emergency department at [facility]. Start taking the Eliquis and the antibiotic, amoxicillin clavulanate tomorrow morning, MondayFebruary 26. Get the antibiotic at the pharmacy. Dr. Dalton will make arrangements for you to see a surgeon as soon as possible. You should get a phone call tomorrow for an appointment Activity Level: Activity as Tolerated Discharge Diet: Low Fat/Low Cholesterol Diet Detail: Avoid fatty foods and fried foods. Eat fruits and vegetables and lean meats and starchy foods that are not fried. Follow Up Appointments: Provider,Not a Local [Primary Care Provider, Family Practice] Forms: Clinical Data Info Instructions
--- NOTE | 2025-02-28 12:09 | PM.EN ---
Chart Event Note Date Seen: 02/25/25 Chart Event Note: Evaluation by the hospitalist for preoperative evaluation was done, with recommendations for surgery to be performed at a tertiary care center. This is largely due to his pulmonary arterial hypertension, which is maintained with 3 separate medications. He also has a history of cardiovascular disease, with last echo greater than 1 year ago. Due to the risks associated with laparoscopic surgery specifically: CO2 insufflation can cause hypercarbia, increased intra-abdominal pressure and hemodynamic changes that may worsen right ventricular function and pulmonary pressures. I discussed with the patient the recommendation for removal of his gallbladder at a different institution. I also reviewed with him the results of his HIDA scan. These are reassuring in the sense that it does not show evidence of acute cholecystitis, but does demonstrate biliary dyskinesia with an ejection fraction of 12%. I do think this is the reason for his intermittent right upper quadrant abdominal pain. My recommendations at this time are to discharge the patient from the hospital with a course of antibiotics, low-fat diet and follow-up with his primary care provider. A referral was also placed for general surgery at [facility] per the patient's request.
== END 2025-02-25 20:40 | disposition home or self-care (01) | DRG 445 ==
LOC: ED 13:03 → MEDSURG 13:14
PROVIDERS: Family Medicine; Surgery; Admitting Provider Family Medicine; Emergency Provider Emergency Medicine Emergency Medical Services; Visit Provider Orthopaedic Surgery
PROC: 0FT44ZZ Resection of Gallbladder, Percutaneous Endoscopic Approach (ICD-10-PCS; CPT 47562; principal; 2025-02-26 07:15)
DX: K80.00 Calculus of gallbladder with acute cholecystitis without obstruction (principal); I27.0 Primary pulmonary hypertension; R21 Rash and other nonspecific skin eruption; I73.9 Peripheral vascular disease, unspecified; R31.21 Asymptomatic microscopic hematuria; N20.0 Calculus of kidney; I48.0 Paroxysmal atrial fibrillation; Z86.711 Personal history of pulmonary embolism; Z79.01 Long term (current) use of anticoagulants; E66.9 Obesity, unspecified; Z68.38 Body mass index [BMI] 38.0-38.9, adult; I69.319 Unspecified symptoms and signs involving cognitive functions following cerebral infarction; G47.33 Obstructive sleep apnea (adult) (pediatric); E78.5 Hyperlipidemia, unspecified
CPT/HCPCS: 36415; 78227; 80048; 80053; 80076; 83690; 85025; 86140; 99284; 99285; A9270; A9537; J0131; J1885; J2543; J2805